=== PATIENT | female | born 1945 | race Caucasian/White ===

== ENCOUNTER → 2024-04-20 15:41 | Outpatient (REF) | payer MEDICARE, OTHER, SELFPAY ==
[2024-04-20 16:20] LABS: Hematocrit 36.7 % (37.0-47.0); Hemoglobin 11.7 g/dL (12.0-16.0); Mean Corp Hgb Conc. 31.9 g/dL (33.0-37.0); Mean Corpuscular Hgb 31.3 pg (27.0-31.0); Mean Corpuscular Volume 98.1 fL (81.0-99.0); Mean Platelet Volume 9.6 fL (7.4-10.4); Platelet Count 345 10^3/uL (130-400); Red Blood Cell Count 3.74 10^6/uL (4.20-5.40); Red Cell Dist. Width 14.2 % (11.5-14.5); White Blood Cell Count 8.5 10^3/uL (4.8-10.8)
[2024-04-20 16:52] LABS: Intact PTH 57.4 pg/ml (13.6-85.8)
[2024-04-20 18:58] LABS: ALT (SGPT) 15 U/L (0-35); AST (SGOT) 23 U/L (14-36); Alkaline Phosphatase 38 U/L (38-126); Blood Urea Nitrogen 32 mg/dl (7-17); Calcium 9.9 mg/dl (8.4-10.2); Carbon Dioxide 28 mmol/L (22-30); Chloride 106 mmol/L (98-107); Glucose < 30 mg/dl (70-99); Phosphorus 3.9 mg/dl (2.5-4.5); Potassium 4.3 mmol/L (3.5-5.1); Sodium 142 mmol/L (135-145); Total Bilirubin 0.4 mg/dl (0.2-1.3); Total Protein 7.1 g/dl (6.3-8.2); eGFR 23.67
[2024-04-21 09:09] LABS: Glycohemoglobin (HgbA1c) 7.1 % (4.0-5.6)
== END ==
LOC: REG 15:41
PROVIDERS: ATTENDING PHYSICIAN Internal Medicine Endocrinology, Diabetes & Metabolism
DX: E11.9 Type 2 diabetes mellitus without complications (principal); N18.4 Chronic kidney disease, stage 4 (severe)
CPT/HCPCS: 36415; 80053; 83036; 83970; 84100; 85027

== ENCOUNTER → 2024-05-06 13:12 | Outpatient (REF) | payer MEDICARE, OTHER, SELFPAY | LOC: HWWDC 13:12 | PROVIDERS: ATTENDING PHYSICIAN Nurse Practitioner Family | DX: Z12.31 Encounter for screening mammogram for malignant neoplasm of breast (principal) | CPT/HCPCS: 77063; 77067 ==

== ENCOUNTER 2024-10-06 22:49 | Inpatient (IN) | payer MEDICARE, OTHER, SELFPAY ==
[2024-10-06 19:49] VITALS: BP 162/85
[2024-10-06 20:04] VITALS: BMI 30.1
[2024-10-06 20:06] LABS: Glucose - Point of Care 573 mg/dl (70-99)
--- NOTE | 2024-10-06 20:09 | ED.GENMED ---
History of Present Illness
General
Chief Complaint: Blood Sugar Problem
Source: patient
Time Seen by Provider: 10/06/24 19:43
History of Present Illness
History of Present Illness:
79-year-old female presents to the emergency room after an neighbor called 911 after checking on her. Patient resides in a home with her who has significant dementia. The patient herself is essentially bedbound. Her is her primary
caregiver. Evidently the patient has not gotten out of her bed for 5 days. Unclear when she last had something to eat or drink. Patient denies chest pain, abdominal pain, nausea or vomiting. She has not had her medicine and an unknown period of
time. Patient is physically impaired due to a hemorrhagic stroke in 2011. She has a left hemiparesis.
Past History
Past History
ED Past Medical History: Cancer, CVA, HTN, NIDDM and Other (Neurogenic bladder, paroxysmal atrial fibrillation, breast cancer, chronic kidney disease)
ED Past Surgical History: Appendectomy and Other (Bartholin's cyst)
Social History
Tobacco: Non-smoker
Alcohol: None
Drug: None
Personal:
Living: with family
Employment: Not employed
Family History
Family History: Diabetes and Hypertension
Phy Exam
Physical Exam
Physical Exam:
General: Awake, Alert, Oriented X2. No acute distress.
Vitals: unremarkable
Head: Atraumatic
Eyes: Pupils equal, EOMI
Throat: Airway intact, no exudates, markedly dry
Neck: Trachea midline
Lungs: Clear and equal b/l
Heart: Regular rate, no murmurs
Abd: Soft, Nontender, No pulsatile mass
Neuro: Left-sided weakness due to previous hemorrhagic CVA
Skin: Warm, dry, intertrigo erythema and irritation
Extremities: pulses equal b/l, 1+ edema, changes of chronic venous stasis
Course
Orders/Labs/Results
Orders:
Orders
10/06/24 20:07
Cardiac Monitoring- Treatment ONCE
Straight cath- Treatment ONCE
0.9% Sodium Chloride 1000 ml [Nss] 1,000 ml IV BOLUS
10/06/24 20:08
Electrocardiogram (*1) Stat
Reason for Study: Abdominal Pain
10/06/24 20:13
CPK [Creatine Phosphokinase] Urgent
Complete Blood Count/With Diff Urgent
Comprehensive Metabolic Panel Urgent
Urinalysis Reflex To Culture Urgent
Date Specimen was Collected: 10/06/24
Time Specimen was Collected: 20:11
Urine Microscopic Reflex Cult Urgent
Urine Culture Urgent
LORRIE Source: U
Specimen Description:
Date Specimen was Collected: 10/06/24
Time Specimen was Collected: 20:11
10/06/24 21:19
Insulin Aspart [NOVOLOG vial] 8 units SC NOW STA
Piperacillin/Tazo 3.375 Gram [Zosyn] 3.375 gram in 50 ml IV NOW
10/06/24 22:05
Admit/Transfer Patient As Directed
Co-Sign Provider:
Level of Care: Inpatient admission
Assign to:: Medical/Surgical
Physician / Group: gillian
Diagnosis: uti, hyperglycemia
Reason for Hospitalization: uti, hyperglycemia
Expected length of stay greater than two midnights?: Yes
ELOS- Estimated Length of Stay in days: 2
I certify the patient meets the requirements for IP care: Yes
10/06/24 22:06
PRN Pain Medication Management As Directed
May give lesser potent ordered pain med per pt: Yes
preference::
Protocol:: Medication orders for pain may be administered in a
manner that supports deferring to patient preference
when the pt is:
- Requesting an ordered lesser potent pain medication.
Least to most potent pain medications are defined
as: acetaminophen < NSAID < tramadol < opioids
(morphine, oxycodone, hydromorphone).
- Requesting a lesser dose of the same medication IF
ORDERED.
- Requesting a less intrusive route of administration
if both routes are prescribed by the provider (PO <
IV).
10/06/24 22:07
Code Status As Directed
Resuscitation Status: Do not resuscitate
Reached after discussion with pt or family/Healthcare POA: Yes
DNR Bracelet Application ONCE
10/07/24 00:07
Dextrose 50%-Water [Dextrose 50% Syringe] 12.5 grams IV [id number] PRN
Glucagon [GlucaGen] 1 mg IM PRN PRN
Piperacillin/Tazo 2.25 Gram [Zosyn] 2.25 grams in 50 ml IV Q6H
10/07/24 00:07
VTE Contraindication Routine
VTE Mechanical Device Contraindication: Medical Contraindication
Pharmocologic Contraindication: Medical Contraindication
Activity As Directed
Activity Level: As Tolerated
Bedside Glucose Monitoring As Directed
Frequency: AC&HS
Additional Instructions:: Change to q6h if pt on TPN, tube feeding or not eating
Bladder Scan As Directed
Follow Bladder Retention/Intermittent Cath Algorithm?: Yes
PRN if no void in __ hours: 6
Frequency: Per Retention Algorithm
If Bladder Scan Result >: 400
then:: Straight cath
Straight Cath As Directed
Frequency: Per Retention Algorithm
Additional Instructions: straight cath as needed per acute urinary retention algorithm for 24 hrs
Additional Instructions: for bladder scan greater than 400 mL
Vital Signs As Directed
Frequency: Per unit guidelines
10/07/24 07:30
Insulin Aspart Corrective Low [Novolog Flexpen-Low Resistance] See Protocol SC AC
10/07/24 08:00
Amiodarone [Pacerone] 200 mg PO DAILY
Cyanocobalamin [Vitamin B-12] 1,000 mcg PO DAILY
Fenofibrate 145 [Tricor] 145 mg PO DAILY
Ferrous Sulfate [Feosol] 325 mg PO DAILY
ISOSORBIDE MONOnitrate ER [Imdur (Extended Release)] 30 mg PO DAILY
Insulin Aspart Pen [Novolog Flexpen] 20 units SC BID@0800,1700
Losartan [Cozaar] 50 mg PO DAILY
Multivitamin [Theragran] 1 tablet PO DAILY
Pantoprazole [Protonix] 40 mg PO DAILY
Potassium Chloride [KCl] 40 meq PO DAILY
10/07/24 08:01
Complete Blood Count/With Diff IN AM
Comprehensive Metabolic Panel IN AM
Glycohemoglobin (HgbA1c) IN AM
10/07/24 18:00
Atorvastatin [Lipitor] 10 mg PO QPM
Warfarin [Coumadin] 0.5 mg PO SuMoTuThFrSa@1800
insulin degludec [Tresiba FlexTouch U-100] 20 unit SC QPM
10/07/24 22:00
Metoprolol Xl [Toprol Xl] 50 mg PO HS
10/13/24 18:00
Warfarin [Coumadin] 1 mg PO WE@1800
Abnormal Lab Results
10/06/24 10/06/24 10/06/24
20:05 20:13 22:47
MCHC 31.6 L g/dL
(33.0-37.0)
Abs Immat Gran (auto) 0.1 H 10^3/uL
(0-0.05)
Absolute Lymphs (auto) 1.1 L 10^3/uL
(1.2-3.4)
Immature Gran % 1.6 H %
(0-0.5)
Neutrophils % 75.6 H %
(42.2-75.2)
Lymphocytes % 16.0 L %
(20.5-51.1)
Chloride 94 L mmol/L
(98-107)
BUN 38 H mg/dl
(7-17)
Creatinine 1.3 H mg/dL
(0.6-1.0)
Glucose 543 H* mg/dl
(70-99)
Total Protein 6.2 L g/dl
(6.3-8.2)
Albumin 3.4 L g/dl
(3.5-5.0)
Urine Ketones Trace A
(Negative)
Ur Occult Blood Reflex 4+ A
(Negative)
Urine Nitrite (Reflex) Positive A
(Negative)
Leukocyte Esterase Rfl 2+ A
(Negative)
Urine WBC (Reflex) >100 A /HPF
(0-5)
Urine Bacteria (Reflex) Moderate A
(Negative)
Urine Glucose 3+ A
(Negative)
Urine Albumin (Reflex) 1+ A
(Neg - Trace)
POC Glucose 573 H* mg/dl 421 H mg/dl
(70-99) (70-99)
10/06/24 20:13
10/06/24 20:13
Vital Signs
Initial and Last Documented VS:
Initial Vital Signs
Temp Pulse Resp BP Pulse Ox
98.4 F 108 27 162/85 94
10/06/24 19:49 10/06/24 19:49 10/06/24 19:49 10/06/24 19:49 10/06/24 19:49
Last Documented Vital Signs
Temp Pulse Resp BP Pulse Ox
98.3 F 69 18 129/67 94
10/10/24 07:25 10/10/24 07:25 10/10/24 07:25 10/10/24 07:25 10/10/24 07:25
MDM/Problems Addressed
Differential Diagnosis Includes:
HHS, uti, dehydration, electrolyte abn, renal failure
MDM/Problems Addressed:
Patient presents after being unable to go to bed for several days. Workup here shows significant abnormalities. Including very elevated glucose of 543. BUN is elevated at 3.8 with a creatinine of 1.3. Anion gap is not significantly elevated at
14. Urine appears infected with greater than 100 WBCs per high-power field. Also urine is very cloudy. Patient resuscitated with IV fluids. Insulin given subcutaneously. Patient will require hospitalization for IV fluid resuscitation,
monitoring of glucose, IV antibiotics.
Chronic conditions affecting care: Neurological disorder (CVA with hemiparesis)
*Radiology
Radiology exam reviewed: radiology read reviewed
*Pulse Oximetry
Patient hypoxic: no
*EKG
Interpreted by ED Provider?: Yes
Heart Rate: 85
Rate: normal
Rhythm: sinus
QRS Pattern: left bundle branch block
Ischemia: non-specific ST changes
*Truck Service Technician Interpretation
Rate: normal
Interpretation: normal
Rhythm: sinus
*Critical Care Note
Total Time (30-74mins, 75-104mins- exclusive of procedures): 40 min
comment:
Critical care statement: A total of 40 minutes of critical care time was provided for this patient. This includes management of unstable vital signs, evaluation of the patient at bedside, reviewing the patient's pertinent medical records, discussion
with consultants, review of old EKGs and review of pertinent medical records. This time with separate from time utilized to perform the aforementioned documented procedures
ED Attending Note
-
Portions of this chart may have been created with voice recognition software.� Occasional wrong word or��sound alike� substitutions may have occurred due to the inherent limitations of voice recognition software.
Discharge Plan
Departure
Patient Disposition: Admit
Date of Disposition: 10/06/24
Time of Disposition: 21:24
Admit to: Med/Surg
Presentation/result/management discussed w/ accepting MD/DO: Hospitalist
Condition: Fair
Discharge Problem:
Acute hyperglycemia, Acute UTI, Acute dehydration
Interventions
Interventions:
*Risk Screen - Suicide Last Done: 10/06/24 20:08
*General Assessment Last Done: 10/06/24 20:06
*Neglect/Abuse Screening Last Done: 10/06/24 20:07
ED- Fall Risk Assessment Last Done: 10/06/24 20:08
*ED COVID-19 Vaccine History Last Done: 10/06/24 20:06
*Nursing Disposition Last Done: 10/07/24 00:09
ED- Cardiac Assessment Last Done: 10/06/24 20:08
ED- Neurological Assessment Last Done: 10/06/24 20:08
ED- Pulmonary Assessment Last Done: 10/06/24 20:08
Discharge Date and Time
Discharge Date/Time: 10/07/24 00:14
[2024-10-06] MEDS: NSS 1000 IV (20:12)
[2024-10-06 20:24] LABS: % Basophils 0.4 % (0-2); % Immature Granulocytes 1.6 % (0-0.5); % Monocytes 5.4 % (1.7-9.3); % Neutrophils 75.6 % (42.2-75.2); Absolute Eosinophils 0.1 10^3/uL (0-0.7); Absolute Immature Granulocytes 0.1 10^3/uL (0-0.05); Absolute Lymphocytes 1.1 10^3/uL (1.2-3.4); Absolute Monocytes 0.4 10^3/uL (0.1-0.6); Absolute Neutrophils 5.1 10^3/uL (1.4-6.5); Hematocrit 42.1 % (37.0-47.0); Hemoglobin 13.3 g/dL (12.0-16.0); Mean Corp Hgb Conc. 31.6 g/dL (33.0-37.0); Mean Corpuscular Hgb 30.6 pg (27.0-31.0); Mean Platelet Volume 9.6 fL (7.4-10.4); Nucleated Red Blood Cells % 0 %; Platelet Count 326 10^3/uL (130-400); Red Blood Cell Count 4.34 10^6/uL (4.20-5.40); Red Cell Dist. Width 13.6 % (11.5-14.5); White Blood Cell Count 6.8 10^3/uL (4.8-10.8)
[2024-10-06 20:35] LABS: Urine Albumin 1+ (Neg - Trace); Urine Bilirubin Negative (Negative); Urine Character Very Cloudy (Clear); Urine Color Yellow; Urine Glucose 3+ (Negative); Urine Ketone Trace (Negative); Urine Leukocyte 2+ (Negative); Urine Nitrite Positive (Negative); Urine Occult Blood 4+ (Negative); Urine Specific Gravity 1.015 (<1.030); Urine Urobilinogen Negative (Neg - 1+)
[2024-10-06 20:43] LABS: ALT (SGPT) 16 U/L (0-35); AST (SGOT) 22 U/L (14-36); Albumin 3.4 g/dl (3.5-5.0); Alkaline Phosphatase 73 U/L (38-126); Blood Urea Nitrogen 38 mg/dl (7-17); Calcium 8.8 mg/dl (8.4-10.2); Carbon Dioxide 27 mmol/L (22-30); Chloride 94 mmol/L (98-107); Creatine Phosphokinase 37 U/L (30-135); Estimated Creatinine Clearance 42 ml/min; Glucose 543 mg/dl (70-99); Potassium 3.9 mmol/L (3.5-5.1); Sodium 135 mmol/L (135-145); Total Bilirubin 0.4 mg/dl (0.2-1.3); Total Protein 6.2 g/dl (6.3-8.2); eGFR 42.09
[2024-10-06 20:55] LABS: Urine Bacteria Moderate (Negative); Urine White Cell >100 /HPF (0-5)
[2024-10-06 21:00] VITALS: BP 162/81
[2024-10-06] MEDS: NOVOLOG vial 8 UNITS SC (21:43)
[2024-10-06] MEDS: ZOSYN 50 IV (21:45)
[2024-10-06 22:00] VITALS: BP 148/85
--- NOTE | 2024-10-06 22:12 | HPS.HSE ---
Family Physician
-
Family Physician: INTERVIEWE UNKNOWN - PT NOT
Chief Complaint
-
weakness
History of Present Illness
79-year-old female past medical history of CVA with left hemiparesis, paroxysmal atrial fibrillation, hypertension, diabetes, neurogenic bladder, breast cancer, CKD 3, complicated UTI with left obstructive stone, anemia, aspiration pneumonitis,
presenting for inability to get out of bed for 5 days. History is obtained from patient's neighbor. Her usually takes care of her but he has dementia and he is being admitted currently. She normally uses a [employer] lift to get around. She
is nonambulatory at baseline. Her has been giving her insulin but not checking her blood sugars. She denies any nausea or vomiting, urinary symptoms, abdominal pain, diarrhea, shortness of breath, cough.
Patient does not smoke or drink alcohol.
Medical History
Past Medical History
Past Medical History: Reports Other (CVA with left hemiparesis, paroxysmal atrial fibrillation, hypertension, diabetes, neurogenic bladder, breast cancer, CKD 3, complicated UTI with left obstructive stone, anemia, aspiration pneumonitis)
Past Surgical History: Reports Other (Appendectomy and Other (Bartholin's cyst))
Social History
Tobacco: Non-smoker
Alcohol: None
Drug: None
Family History
Family History: Not pertinent
Allergies / Home Medications
Allergies reflects when Allergies were last updated in [facility].
Home Medications with original date entered in [facility]
Allergy/Medication List:
Allergies
Allergy/AdvReac Type Severity Reaction Status Date / Time
cephalexin monohydrate Allergy Itching; Verified 03/23/23 17:49
[From [facility]] tolerates
Piperacillin/tazobactam
Home Medications
simvastatin 10 mg tablet 10 mg PO QPM 01/22/19
cyanocobalamin (vitamin B-12) 1,000 mcg tablet 1,000 mcg PO DAILY 12/01/19
warfarin 1 mg tablet (Jantoven) 1 mg PO WE 12/01/19
amiodarone 200 mg tablet (Pacerone) 200 mg PO DAILY 12/16/19
metoprolol succinate 50 mg tablet,extended release 24 hr 50 mg PO HS 12/16/19
pantoprazole 40 mg tablet,delayed release 40 mg PO DAILY 12/16/19
fenofibrate nanocrystallized 145 mg tablet 145 mg PO DAILY 04/24/20
ferrous sulfate 325 mg (65 mg iron) tablet (FeroSul) 325 mg PO DAILY 04/24/20
insulin aspart U-100 100 unit/mL (3 mL) subcutaneous pen (Novolog FlexPen U-100 Insulin aspart) 20 units SC BID@0800,1700 04/24/20
isosorbide mononitrate 30 mg tablet,extended release 24 hr 30 mg PO DAILY 04/24/20
losartan 50 mg tablet 50 mg PO DAILY 04/24/20
cranberry extract 200 mg capsule (Ellura) 200 mg PO NOON 10/06/24
furosemide 20 mg tablet 40 mg PO DAILY 10/06/24
insulin degludec 100 unit/mL (3 mL) subcutaneous pen (Tresiba FlexTouch U-100 insulin) 20 unit SC QPM 10/06/24
potassium chloride 10 mEq tablet,extended release 40 meq PO DAILY 10/06/24
therapeutic multivitamin 1 tab PO DAILY 10/06/24
warfarin 1 mg tablet 0.5 mg PO SUMOTUTHFRSA 10/06/24
Review of Systems
-
History Source: Patient
A 12 point ROS was completed and negative except as noted: Yes
Constitutional: Reports No Symptoms
EENT: Reports No Symptoms
Respiratory: Reports No Symptoms
Cardiac: Reports No Symptoms
Abdomen/GI: Reports No Symptoms
: Reports No Symptoms
Musculoskeletal: Reports No Symptoms
Skin: Reports No Symptoms
Neurological: Reports No Symptoms
Endocrine: Reports No Symptoms
Hematologic/Lymphatic: Reports No Symptoms
Psych: Reports No Symptoms
Physical Exam
Vital Signs
Vital Signs
Temp Pulse Resp BP Pulse Ox
98.4 F 84 19 162/85 92
10/06/24 19:49 10/06/24 20:30 10/06/24 20:30 10/06/24 19:49 10/06/24 20:30
Physical Exam
General: Well Developed, Well Nourished and No Apparent Distress
HEENT: NormoCephalic, Moist mucous membranes and Atraumatic
Respiratory: Clear
Cardiac: S1/S2 and Regular Rhythm; No Murmur or Rub
GI: Soft, Non Tender, Non Distended and Normal Bowel Sounds; No Organomegaly
Rectal: Deferred by Provider
Musculoskeletal: No Clubbing, No Cyanosis and No Edema
Skin: No Rash
Neuro: Nonfocal/grossly intact
Laboratory Results
-
10/06/24 20:13
10/06/24 20:13
Laboratory Results
PT Cancelled 10/06/24 20:12
INR Cancelled 10/06/24 20:12
Total Bilirubin 0.4 mg/dl (0.2-1.3) 10/06/24 20:13
AST 22 U/L (14-36) 10/06/24 20:13
ALT 16 U/L (0-35) 10/06/24 20:13
Alkaline Phosphatase 73 U/L (38-126) 10/06/24 20:13
Data Reviewed
-
Lab Data: Labs Reviewed by me
Old Records: Reviewed
Impression/Plan
-
IMPRESSION:
PLAN:
# Urinary tract infection
# History of prior urinary retention
-IV fluids given, hold further fluids
-Urine culture
-Zosyn
-Bladder scan protocol
# Hyperglycemia secondary to infection
# Type 2 diabetes
-Blood sugar 543
-Continue Tresiba 20 units at night
-Continue NovoLog 20 units twice daily
History of CVA with left hemiparesis
Paroxysmal atrial fibrillation
-Continue amiodarone
-Continue Coumadin
-Continue metoprolol
Essential hypertension
-Continue losartan
Breast cancer
CKD 3
-Renal function at baseline
Chronic anemia
-Hemoglobin at baseline
-Continue ferrous sulfate
Hyperlipidemia
-Continue fenofibrate
Lower extremity edema
-Hold Lasix
DNR/DNI
DVT prophylaxis�Coumadin
Regular diet
[2024-10-06 22:51] LABS: Glucose - Point of Care 421 mg/dl (70-99)
[2024-10-06 23:01] VITALS: BP 134/72
[2024-10-06 23:30] VITALS: BP 158/83
[2024-10-06 23:45] LABS: Glucose 435 mg/dl (70-99)
[2024-10-07] VITALS: BP 158/83; BMI 28.1
--- NOTE | 2024-10-07 00:15 | PTCARENOTE ---
Patient arrived to unit via stretcher accompanied by ED PCT, transferred from stretcher to bed without difficulty. Nursing assessment completed and as documented. Venous blood glucose on arrival resulted at 435 from ED draw, WOODWORK SALVAGE INSPECTOR notified and on
floor, 6units Novolog ordered and administered - see MAR. Coags ordered for AM. VSS, oriented to room/facility, instructed use of call and within reach, care ongoing.
[2024-10-07] MEDS: NOVOLOG FLEXPEN 6 UNITS SC (01:21)
[2024-10-07 02:17] LABS: Glucose - Point of Care 316 mg/dl (70-99)
[2024-10-07] MEDS: ZOSYN 50 IV ×3 (05:05→18:27)
--- NOTE | 2024-10-07 07:58 | W.PN.HOSP.TC ---
Addendum entered and electronically signed by Neftaly Huff MD 10/07/24 15:18:
I spoke to on-call neurosurgeon today, and discussed patient's history of intracranial hemorrhage; on-call neurosurgeon mentioned that there are no contraindications to starting Heparin Drip to bridge the Coumadin. Appreciate neurosurgery and
cardiology assistance.
Original Note:
Today's Communication/Plan
-
Subtherapeutic INR -- discussed with cardiology and okay to bridge with Heparin Drip without initial bolus
Continue antibiotics
Assessment / Plan
Assessment / Plan
Physical Exam
General: Not in acute distress
HEENT: Normocephalic
Respiratory: CTAB
Cardiac: S1/S2 and Regular Rhythm
GI: Soft, Non Tender, Non Distended and Normal Bowel Sounds
Musculoskeletal: No Cyanosis and No Edema
Skin: Warm. Dry.
Neuro: Nonfocal/grossly intact
Assessment/Plan
79-year-old female with past medical history of CVA with left hemiparesis, paroxysmal atrial fibrillation, hypertension, diabetes, neurogenic bladder, breast cancer, chronic kidney disease stage 3, complicated UTI with left obstructive stone,
anemia, aspiration pneumonitis, presented for inability to get out of bed for 5 days. History on admission was obtained from patient's neighbor. Patient's usually takes care of patient but was noted to have dementia and he is being admitted
currently. She normally uses a [employer] lift to get around. She is nonambulatory at baseline. Her had been giving her insulin but not checking her blood sugars. She denied any nausea or vomiting, urinary symptoms, abdominal pain, diarrhea,
shortness of breath, cough.
Patient does not smoke or drink alcohol.
#Presentation with inability to get out of bed for 5 days
#Acute Hypoxic Respiratory Failure -- on 3 L of oxygen here, but no home oxygen
#History of Aspiration Pneumonitis
#Urinary tract infection
#History of E. coli, Klebsiella pneumoniae, Klebsiella oxytoca and Nohemy Albicans in the Urine
#History of prior urinary retention
#History of MRSA
#History of Polymicrobial Septic Shock (with blood cultures positive for candidemia and E coli and Providencia species)
#History of complicated urinary tract infection with left obstructive stone and hydronephrosis
-In 2019, patient required cystoscopy with stone manipulation and JJ stent placement on December 08, 2019
-IV fluids given, hold further fluids
-Follow urine culture
-Zosyn
-Recheck MRSA swab
-Bladder scan protocol
-Check Echo, proBNP for any signs of PE especially with subtherapeutic INR
-Check lower extremity ultrasound for DVT
# Hyperglycemia secondary to infection
# Type 2 diabetes
-Blood sugar 543
-Continue Tresiba 20 units at night
-Continue NovoLog 20 units twice daily
History of CVA with left hemiparesis
Hypokalemia
-Replace potassium
-Check magnesium
-Monitor BMP
Paroxysmal atrial fibrillation on Coumadin
Subtherapeutic INR
-Continue amiodarone
-Continue Coumadin
-Given subtherapeutic INR, will bridge with Heparin Drip without initial bolus -- discussed this with on-call cardiology on 10/07/24 and okay to do in the setting of her history of remote hemorrhagic
CVA
-Continue metoprolol
Essential hypertension
-Continue losartan
CKD 3
-Renal function at baseline
Chronic anemia
-Hemoglobin at baseline
-Continue ferrous sulfate
Hyperlipidemia
-Continue fenofibrate
Lower extremity edema
-Hold Lasix
History of Breast cancer status post mastectomy with port placement followed by chemotherapy and radiation therapy - finished all of that back in 2011
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
Neurogenic bladder from her CVA.
-Continue Bladder Scans protocol
Psoriasis
History of sacral decubitus ulcer
History of DVT status post IVC filter
Sacral decubitus ulcer.
DNR/DNI
DVT prophylaxis�Coumadin
Regular diet
Anticipated Discharge: > 48 hours
Subjective/Interval History
-
Date of Service: October 07, 2024
Patient was seen and examined. She denied any new symptoms or complaints.
Objective Data
-
Labs:
Laboratory Results
10/06/24 10/06/24 10/06/24
20:12 20:13 23:17
WBC 6.8
Hgb 13.3
Hct 42.1
Plt Count 326
PT Cancelled
INR Cancelled
APTT
Sodium 135
Potassium 3.9
Chloride 94 L
Carbon Dioxide 27
BUN 38 H
Creatinine 1.3 H
Glucose 543 H* 435 H
Calcium 8.8
Total Bilirubin 0.4
AST 22
ALT 16
Alkaline Phosphatase 73
10/07/24
06:00
WBC Pending
Hgb Pending
Hct Pending
Plt Count Pending
PT Pending
INR Pending
APTT Pending
Sodium Pending
Potassium Pending
Chloride Pending
Carbon Dioxide Pending
BUN Pending
Creatinine Pending
Glucose Pending
Calcium Pending
Total Bilirubin Pending
AST Pending
ALT Pending
Alkaline Phosphatase Pending
Vital Signs:
Vital Signs
Temp Pulse Resp BP Pulse Ox
98.3 F 82 18 158/83 93
10/07/24 00:00 10/07/24 00:00 10/07/24 00:00 10/07/24 00:00 10/07/24 01:23
I&O
10/06/24 10/07/24 10/08/24
06:59 06:59 06:59
Intake Total 650 / 650
Balance 650 / 650
[2024-10-07 08:24] LABS: Glucose - Point of Care 375 mg/dl (70-99)
[2024-10-07 08:27] LABS: % Basophils 0.5 % (0-2); % Eosinophils 0.9 % (0-6); % Immature Granulocytes 1.3 % (0-0.5); % Lymphocytes 10.9 % (20.5-51.1); % Monocytes 7.9 % (1.7-9.3); % Neutrophils 78.5 % (42.2-75.2); Absolute Eosinophils 0.1 10^3/uL (0-0.7); Absolute Immature Granulocytes 0.1 10^3/uL (0-0.05); Absolute Monocytes 0.7 10^3/uL (0.1-0.6); Absolute Neutrophils 6.9 10^3/uL (1.4-6.5); Hematocrit 36.9 % (37.0-47.0); Hemoglobin 11.8 g/dL (12.0-16.0); Mean Corpuscular Hgb 30.9 pg (27.0-31.0); Mean Corpuscular Volume 96.6 fL (81.0-99.0); Mean Platelet Volume 10.1 fL (7.4-10.4); Nucleated Red Blood Cells % 0 %; Platelet Count 266 10^3/uL (130-400); Red Blood Cell Count 3.82 10^6/uL (4.20-5.40); Red Cell Dist. Width 13.8 % (11.5-14.5); White Blood Cell Count 8.7 10^3/uL (4.8-10.8)
[2024-10-07 08:34] LABS: INR 1.39; PT 17.6 Sec (11.4-14.6)
[2024-10-07 08:35] LABS: APTT 32.5 Sec (23.4-35.0)
[2024-10-07] MEDS: NOVOLOG FLEXPEN-LOW RESISTANCE 5 UNITS SC ×2 (08:42→18:39)
[2024-10-07] MEDS: COZAAR 50 MG PO (08:43)
[2024-10-07] MEDS: IMDUR (EXTENDED RELEASE) 30 MG PO (08:44)
[2024-10-07] MEDS: TRICOR 145 MG PO (08:44)
[2024-10-07] MEDS: VITAMIN B-12 1000 MCG PO (08:44)
[2024-10-07] MEDS: KCL 40 MEQ PO ×2 (08:44→18:17)
[2024-10-07] MEDS: THERAGRAN 1 TABLET PO (08:44)
[2024-10-07] MEDS: FEOSOL 325 MG PO (08:44)
[2024-10-07] MEDS: PROTONIX 40 MG PO (08:44)
[2024-10-07] MEDS: NOVOLOG FLEXPEN 20 UNITS SC (08:45)
[2024-10-07] MEDS: PACERONE 200 MG PO (08:45)
[2024-10-07 09:55] LABS: ALT (SGPT) 13 U/L (0-35); AST (SGOT) 17 U/L (14-36); Albumin 2.8 g/dl (3.5-5.0); Alkaline Phosphatase 61 U/L (38-126); Blood Urea Nitrogen 35 mg/dl (7-17); Calcium 8.6 mg/dl (8.4-10.2); Carbon Dioxide 25 mmol/L (22-30); Chloride 97 mmol/L (98-107); Estimated Creatinine Clearance 40 ml/min; Glucose 383 mg/dl (70-99); Potassium 3.4 mmol/L (3.5-5.1); Sodium 135 mmol/L (135-145); Total Bilirubin 0.5 mg/dl (0.2-1.3); Total Protein 5.4 g/dl (6.3-8.2); eGFR 42.09
[2024-10-07 12:40] LABS: Glucose - Point of Care 274 mg/dl (70-99)
[2024-10-07] MEDS: NOVOLOG FLEXPEN-LOW RESISTANCE 3 UNITS SC (12:54)
--- NOTE | 2024-10-07 13:35 | CM ---
automation and controls manager reviewed patient's chart and spoke with patient and her friend and her nephew, Rudolph at bedside. Patient having difficulty answering questions maybe due to an old stroke. Patient lives with her spouse in a 2 story home with 1st floor
set up. Per patient's family patient has been bedbound for a while possible 1-2 years, patient spouse had a [employer] Lift and w/c in home but it is unclear how recent patient's spouse has used these items.
Patient's spouse is currently a patient in the ED and has some memory issues.
Patient is currently on 3 liters of oxygen.
PCP: Not sure if patient sees PCP patient was unable to answer question.
Plan; automation and controls manager will await PT/OT but did discuss possible skilled placement and provided a list of options. Patient may have a POA Candice Gabriel.
[2024-10-07 14:07] LABS: Glycohemoglobin (HgbA1c) 9.8 % (4.0-5.6)
--- NOTE | 2024-10-07 14:40 | PN.DE.MGMTRT ---
Insulin Management
- -
10/07/2024 Diabetes Management Consult
Patient admitted 10/06 with blood sugar problem. Neighbor did a well check on patient and to find they were not able to care for each other. PMH CVA, CA, HTN, diabetes, kidney disease. Prior to admission chart indicates patient was
ordered novolog 20 units BID with Tresiba 20 units @ hs. A1C 9.8%, cr 1.3 eGFR 42.09.
Patient is awake and alert unable to answer questions regarding her diabetes care prior to admission. I did learn that her has dementia and was assisting her but she has not received insulin or been out of bed in 5 days. She did not
receive lantus last HS.
Glucose on admission 543. Will change 20 units novolog BID to 12 units novolog AC with low corrective. Patient ro receive 20 units lantus @ hs. Patient is unable to administer her insulin herself. There is a glucose monitor at home but patient
is unable to perform self testing.
Will follow.
Diabetes History
- -
Type of Diabetes: 2 requiring insulin
Pre-Admission Diabetes Regimen
10/06/24 10/07/24
20:13 08:01
Creatinine 1.3 H 1.3 H
Lab Results
Hemoglobin A1c 9.8 % (4.0-5.6) H 10/07/24 08:01
Insulin Pump Settings
IP Diabetes Regimen
10/06/24 10/06/24 10/06/24
20:05 20:13 22:47
Glucose 543 H*
POC Glucose 573 H* 421 H
10/06/24 10/07/24 10/07/24
23:17 02:16 08:01
Glucose 435 H 383 H
POC Glucose 316 H
10/07/24 10/07/24
08:23 12:38
Glucose
POC Glucose 375 H 274 H
Patient Education
[2024-10-07 16:30] VITALS: BP 110/60
--- NOTE | 2024-10-07 17:30 | PTCARENOTE ---
17OO Pt retuned back from Cat Scan of head and Peripheral vascular ultrasound. DR. Huff aware of results, ordered to start IV heparin drip and to bridge with coumadin. Pt is a difficult IV stick. Explain to DR. Huff PTT level due at 12
midnight post start of IV heparin drip, MD ordered
all current lab levels due can be drawn with PTT level at 12 midnight, continue to monitor pt closely.
[2024-10-07] MEDS: HEPARIN 25000 UNITS/250 ML IV (17:47)
[2024-10-07] MEDS: LIPITOR 10 MG PO (18:18)
[2024-10-07] MEDS: COUMADIN 0.5 MG PO (18:27)
[2024-10-07 18:28] LABS: Glucose - Point of Care 376 mg/dl (70-99)
[2024-10-07] MEDS: NOVOLOG FLEXPEN 12 UNITS SC (18:40)
[2024-10-07] MEDS: LANTUS 0.2 UNITS SC (18:40)
[2024-10-07 21:15] LABS: Glucose - Point of Care 322 mg/dl (70-99)
[2024-10-07 21:39] VITALS: BP 110/58
[2024-10-07] MEDS: TOPROL XL 50 MG PO (21:43)
[2024-10-07 22:10] VITALS: BP 110/58
[2024-10-08] MEDS: ZOSYN 50 IV ×3 (01:09→12:46)
[2024-10-08 01:14] LABS: APTT 24.5 Sec (23.4-35.0)
[2024-10-08 01:16] LABS: Hematocrit 36.6 % (37.0-47.0); Hemoglobin 11.6 g/dL (12.0-16.0); Mean Corp Hgb Conc. 31.7 g/dL (33.0-37.0); Mean Corpuscular Hgb 30.6 pg (27.0-31.0); Mean Corpuscular Volume 96.6 fL (81.0-99.0); Mean Platelet Volume 9.8 fL (7.4-10.4); Platelet Count 300 10^3/uL (130-400); Red Blood Cell Count 3.79 10^6/uL (4.20-5.40); Red Cell Dist. Width 14.1 % (11.5-14.5); White Blood Cell Count 9.6 10^3/uL (4.8-10.8)
[2024-10-08 01:30] LABS: Blood Urea Nitrogen 42 mg/dl (7-17); Calcium 8.8 mg/dl (8.4-10.2); Carbon Dioxide 27 mmol/L (22-30); Chloride 97 mmol/L (98-107); Estimated Creatinine Clearance 25 ml/min; Glucose 257 mg/dl (70-99); Magnesium 1.8 mg/dl (1.6-2.3); Potassium 4.2 mmol/L (3.5-5.1); Sodium 134 mmol/L (135-145); eGFR 23.67
[2024-10-08 01:33] LABS: NT-proBNP 439 pg/ml
[2024-10-08 07:06] VITALS: BP 105/83
--- NOTE | 2024-10-08 07:42 | PN.DE.MGMTRT ---
Insulin Management
- -
10/08/2024 Diabetes Management Consult Follow up
Patient admitted 10/06 with blood sugar problem. Neighbor did a well check on patient and to find they were not able to care for each other. PMH CVA, CA, HTN, diabetes, kidney disease. Prior to admission chart indicates patient was
ordered novolog 20 units BID with Tresiba 20 units @ hs. A1C 9.8%, cr 1.3 eGFR 42.09.
Patient is awake and alert unable to answer questions regarding her diabetes care prior to admission. I did learn that her has dementia and was assisting her but she has not received insulin or been out of bed in 5 days. She did not
receive lantus last HS.
Glucose on admission 543. Will change 20 units novolog BID to 12 units novolog AC with low corrective. Patient ro receive 20 units lantus @ hs.
10/08 Glucose remains elevated 257 fasting today and 274 to 376 pre meal yesterday. Will increase HS lantus to 24 units and AC novolog to 15 units with low corrective.
Patient is unable to administer her insulin herself. There is a glucose monitor at home but patient is unable to perform self testing.
Will follow.
Diabetes History
- -
Type of Diabetes: 2 requiring insulin
Pre-Admission Diabetes Regimen
10/07/24 10/07/24 10/08/24
08:01 20:00 01:02
Creatinine 1.3 H Cancelled 2.1 H
Lab Results
Hemoglobin A1c 9.8 % (4.0-5.6) H 10/07/24 08:01
Insulin Pump Settings
IP Diabetes Regimen
10/07/24 10/07/24 10/07/24
08:01 08:23 12:38
Glucose 383 H
POC Glucose 375 H 274 H
10/07/24 10/07/24 10/07/24
18:26 20:00 21:14
Glucose Cancelled
POC Glucose 376 H 322 H
10/08/24
01:02
Glucose 257 H
POC Glucose
Meal type: Breakfast
Amount consumed: 30%
Patient Education
[2024-10-08 07:49] LABS: Glucose - Point of Care 296 mg/dl (70-99)
[2024-10-08 08:13] LABS: INR 1.72; PT 20.3 Sec (11.4-14.6)
[2024-10-08 08:53] LABS: APTT 160.6 Sec (23.4-35.0)
[2024-10-08] MEDS: NOVOLOG FLEXPEN-LOW RESISTANCE 3 UNITS SC ×2 (10:05→18:37)
[2024-10-08] MEDS: NOVOLOG FLEXPEN 15 UNITS SC ×3 (10:06→18:37)
[2024-10-08] MEDS: NOVOLOG FLEXPEN SC (10:32)
[2024-10-08] MEDS: PROTONIX 40 MG PO (10:33)
[2024-10-08] MEDS: TRICOR 145 MG PO (10:34)
[2024-10-08] MEDS: THERAGRAN 1 TABLET PO (10:34)
[2024-10-08] MEDS: VITAMIN B-12 1000 MCG PO (10:34)
[2024-10-08] MEDS: KCL 40 MEQ PO (10:34)
[2024-10-08] MEDS: FEOSOL 325 MG PO (10:38)
[2024-10-08] MEDS: PACERONE 200 MG PO (10:38)
[2024-10-08] MEDS: IMDUR (EXTENDED RELEASE) 30 MG PO (10:39)
--- NOTE | 2024-10-08 11:08 | PN.CDI ---
CDI
- -
CDI:
Physician Documentation Request
Admit Date: 10/06/24 22:49
Dear Doctor Refugio,
Please review the following and provide your response in the progress notes.
Clinical Indicators:
PN, 10/07
#Essential hypertension
#CKD 3
#...-Renal function at baseline
Laboratory Tests
10/06/24 10/07/24 10/08/24
20:13 08:01 01:02
Creatinine 1.3 H 1.3 H 2.1 H
eGFR 42.09 42.09 23.67
Based on the above and your clinical assessment, please clarify which of the following accurately represents the patient's renal status:
Acute renal failure on chronic kidney disease (CKD) - please provide stage - see criteria)
CKD 3
Other (please specify)
Criteria for ELIAS*
1 Increase in serum creatinine by > or = to 0.3 mg/dL (> or = to 26.5 micromol/L) within 48 hours, OR
2 Increase in serum creatinine to > or = to 1.5 times baseline, which is known or presumed to have occurred within 7 days, OR
3 Urine volume < 0.5 nL/kg/hour for six hours
Stages of Chronic Kidney Disease*
Level Description GFR
G1 Normal or High >90
G2 Mildly decreased 60-89
G3a Mildly to moderately decreased 45-59
G3b Moderately to severely decreased 30-44
G4 Severely decreased 15-29
G5 Kidney failure <15
Use of terms such as suspected, likely, concern for, or probable (associated with a specific diagnosis that is being evaluated, monitored, or treated as if it exists) are acceptable and can be coded in the inpatient setting, when documented at the
time of discharge.
Thank you,
Virginia Harrison RN BSN CCDS
CDI Specialist
please contact via tiger text
Please use your independent medical judgment in providing your response.
*Source: Kidney Disease: Improving Global Outcomes (KDIGO) 2012
[2024-10-08 11:50] LABS: Glucose - Point of Care 368 mg/dl (70-99)
--- NOTE | 2024-10-08 12:48 | CM ---
Addendum entered by Addis Pompa 10/11/24 15:34:
Patient has been dned at [facility], referrals sent to [facility] and [facility].
Original Note:
manager embalmer funeral director reviewed patient's chart and spoke with patient , spouse and nephew Rudolph [phone] and they are agreeable to [facility], [facility] referrals sent through [facility].
Plan; Skilled placement patient and spouse would like placement at [facility].
[2024-10-08 13:19] VITALS: BP 110/60
[2024-10-08] MEDS: NOVOLOG FLEXPEN-LOW RESISTANCE 5 UNITS SC (14:03)
[2024-10-08] MEDS: COZAAR 50 MG PO (14:03)
--- NOTE | 2024-10-08 15:23 | W.PN.HOSP.TC ---
Addendum entered and electronically signed by Neftaly Huff MD 10/08/24 16:13:
Zosyn stopped, switched to Merrem (patient allergic to cephalosporin class of antibiotics).
Consulted nephrology and infectious disease.
Gentle IV fluids.
Monitor closely for urinary retention.
Original Note:
Today's Communication/Plan
-
Continue antibiotics but switch to Rocephin
Continue bladder scans
Assessment / Plan
Assessment / Plan
Physical Exam
General: Not in acute distress
HEENT: Normocephalic
Respiratory: CTAB
Cardiac: S1/S2 and Regular Rhythm
GI: Soft, Non Tender, Non Distended and Normal Bowel Sounds
Musculoskeletal: No Cyanosis and No Edema
Skin: Warm. Dry.
Neuro: Nonfocal/grossly intact

Echocardiogram (as per command post craftsman's report):
CONCLUSIONS
LV ejection fraction is 60-65%.
No regional wall motion abnormalities are seen.
Normal right ventricular size and function.
Mild to moderate tricuspid regurgitation. Estimated pulmonary artery pressure
of 40-45 mmHg.
Compared to previous echo on 12/03/2019, the degree of mitral regurgitation has
improved (previously moderate). PASP has slightly increased (previously 30-35
mmHg).

Assessment/Plan
79-year-old female with past medical history of CVA with left hemiparesis, paroxysmal atrial fibrillation, hypertension, diabetes, neurogenic bladder, breast cancer, chronic kidney disease stage 3, complicated UTI with left obstructive stone,
anemia, aspiration pneumonitis, presented for inability to get out of bed for 5 days. History on admission was obtained from patient's neighbor. Patient's usually takes care of patient but was noted to have dementia and he is being admitted
currently. She normally uses a [employer] lift to get around. She is nonambulatory at baseline. Her had been giving her insulin but not checking her blood sugars. She denied any nausea or vomiting, urinary symptoms, abdominal pain, diarrhea,
shortness of breath, cough.
Patient does not smoke or drink alcohol.
#Presentation with inability to get out of bed for 5 days
#Acute Hypoxic Respiratory Failure -- on 3 L of oxygen here, but no home oxygen
#History of Aspiration Pneumonitis
#Urinary tract infection
#History of E. coli, Klebsiella pneumoniae, Klebsiella oxytoca and Nohemy Albicans in the Urine
#History of prior urinary retention
#History of MRSA
#History of Polymicrobial Septic Shock (with blood cultures positive for candidemia and E coli and Providencia species)
#History of complicated urinary tract infection with left obstructive stone and hydronephrosis
-In 2019, patient required cystoscopy with stone manipulation and JJ stent placement on December 08, 2019
-IV fluids given, hold further fluids
-Follow urine culture -- so far growing E. coli
-Stop Zosyn given jump in creatinine
-Start ceftriaxone
-MRSA swab negative
-Bladder scan protocol
-Echo okay, proBNP 439 --> not suspecting PE
-Lower extremity ultrasound showed no DVT
# Hyperglycemia secondary to infection
# Type 2 diabetes
-Blood sugar was 543
-Appreciate Diabetes DAY SPA MANAGER insulin adjustment assistance
History of CVA with left hemiparesis
Hypokalemia - RESOLVED
-Replace potassium
-Magnesium okay
-Monitor BMP
Paroxysmal atrial fibrillation on Coumadin
Subtherapeutic INR
-Continue amiodarone
-Continue Coumadin
-Given subtherapeutic INR, continue to bridge with Heparin Drip -- discussed this with on-call cardiology and neurosurgery on 10/07/24 and okay to do Heparin Drip in the setting of her history of remote hemorrhagic
CVA
-Continue metoprolol
Essential hypertension
-Continue losartan
ELIAS on CKD 3
-Cr jumped from 1.3 to 2.1, previously IV fluids were given
-Possibly from Zosyn
-Gentle IV fluids
-Continue bladder scans
-Check renal ultrasound
-Nephrology consult
Chronic anemia
-Hemoglobin at baseline
-Continue ferrous sulfate
Hyperlipidemia
-Continue fenofibrate
Lower extremity edema
-Hold Lasix
History of Breast cancer status post mastectomy with port placement followed by chemotherapy and radiation therapy - finished all of that back in 2011
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
Neurogenic bladder from her CVA.
-Continue Bladder Scans protocol
Psoriasis
History of sacral decubitus ulcer
History of DVT status post IVC filter
Sacral decubitus ulcer.
DNR/DNI
Diet/Speech: 'Swallow Evaluation for 432-01 Gaines Kinza: Recommending IDDSI Level 4 Puree diet, thin liquids. Medications crushed in puree. Aspiration precautions includin:1 assistance/100% supervision with meals, check for pocketing,
monitor for signs of aspiration.....'
DVT prophylaxis�Coumadin and Heparin Drip
IDDSI Level 4+Thin Liquids diet
Anticipated Discharge: > 48 hours
Subjective/Interval History
-
Date of Service: October 08, 2024
Patient was seen and examined. She denied any chest pain or shortness of breath.
Objective Data
-
Labs:
Laboratory Results
10/08/24 10/08/24 10/08/24
07:39 07:39 16:00
PT 20.3 H
INR 1.72
APTT 160.6 H* Cancelled Pending
Vital Signs:
Vital Signs
Temp Pulse Resp BP Pulse Ox
97.6 F 83 18 110/60 95
10/08/24 07:06 10/08/24 07:06 10/08/24 07:06 10/08/24 13:19 10/08/24 07:06
I&O
10/07/24 10/08/24 10/09/24
06:59 06:59 06:59
Intake Total 650 / 650 1110 / 1110
Balance 650 / 650 1110 / 1110
--- NOTE | 2024-10-08 15:23 | PTOTSP ---
SPEECH THERAPY SWALLOW EVALUATION:
Patient exhibits clinical signs of oropharyngeal dysphagia, likely chronic related to history of CVA and acutely exacerbated by UTI. Patient remains at risk for aspiration and related complications due to confusion, reduced insight, poor oral
hygiene and limited mobility. Recommend diet downgrade to IDDSI Level 4 Puree diet, thin liquids. Medications crushed in puree. Aspiration precautions: 100% supervision and 1:1 assistance with meals; Upright positioning; Small single sips/bites;
Slow rate; Alternate textures; Check for pocketing; Only feed when awake/alert; Monitor labs/CXR; Monitor for signs of aspiration; D/c diet if any decline in mental or respiratory status. Oral care 3x/day to reduce risk for nosocomial infection. ST
to follow, assess diet tolerance and modify as appropriate, determine indication for instrumental assessment of swallowing if warranted, and provide continued eduation regarding aspiration risks and precautions.
RECOMMEND:
1) diet downgrade to IDDSI Level 4 Puree diet, thin liquids
2) Medications crushed in puree
3) Aspiration precautions: 100% supervision and 1:1 assistance with meals; Upright positioning; Small single sips/bites; Slow rate; Alternate textures; Check for pocketing; Only feed when awake/alert; Monitor labs/CXR; Monitor for signs of
aspiration; D/c diet if any decline in mental or respiratory status
4) Oral care 3x/day
5) ST to follow
[2024-10-08 15:49] VITALS: BP 109/59
--- NOTE | 2024-10-08 16:17 | W.CON.NEPH ---
Consultation
-
Date/Time Consultation Requested: 10/08/2024 4:15 PM
Date/Time Consultation Performed: 10/08/2024 4:15 PM
Requesting Provider: Dr. Croft
Performing Provider: Dr. Cho
Reason for Consultation: Acute kidney
Medical History
-
Chief Complaint: Acute kidney injury
History of Present Illness:
The patient is a 79-year-old female with a past medical history of atrial fibrillation chronically maintained on amiodarone and rate controlled with metoprolol. She is chronically anticoagulated with Coumadin. She has a history of diabetes and is
maintained on insulin therapy. She is maintained on losartan and metoprolol for her hypertension. The patient has a history of chronic kidney disease with creatinine levels noted between 1.3-2 per review of electronic medical record over the past
2 years. She has a history of CVA with subsequent left hemiparesis. She also has an associated neurogenic bladder and previous breast cancer. She has had prior issues with complicated UTIs secondary to left obstructive nephrolithiasis. She
presented to the hospital 2 days prior with inability to get out of bed for 5 days. She is normally nonambulatory at baseline. She had been given antibiotics which included IV Zosyn and has now had acute kidney injury with her creatinine up from
1.3-2.1 and nephrology was consulted.
Past Medical History
CVA with left hemiparesis
Hypertension
Paroxysmal atrial fibrillation
CKD stage IIIa
Breast cancer
Insulin requiring diabetes
Neurogenic bladder
History of complicated UTIs with left obstructive nephrolith
Anemia
Appendectomy
Social History
Tobacco: Non-Smoker
Alcohol: None
Family History
no ckd
Family History: Not Pertinent
Allergies / Home Medications
Allergy/AdvReac Type Severity Reaction Status Date / Time
cephalexin monohydrate Allergy Itching; Verified 03/23/23 17:49
[From Keflex] tolerates
Piperacillin/tazobactam
�Medication �Instructions �Recorded �Confirmed �Type
simvastatin 10 mg tablet 10 mg PO QPM 01/22/19 10/06/24 History
cyanocobalamin (vitamin B-12) 1,000 mcg PO DAILY 12/01/19 10/06/24 History
1,000 mcg tablet
warfarin 1 mg tablet (Jantoven) 1 mg PO WE 12/01/19 10/06/24 History
amiodarone 200 mg tablet (Pacerone) 200 mg PO DAILY 12/16/19 10/06/24 Rx
metoprolol succinate 50 mg 50 mg PO HS 12/16/19 10/06/24 Rx
tablet,extended release 24 hr
pantoprazole 40 mg tablet,delayed 40 mg PO DAILY 12/16/19 10/06/24 Rx
release
fenofibrate nanocrystallized 145 145 mg PO DAILY 04/24/20 10/06/24 History
mg tablet
ferrous sulfate 325 mg (65 mg 325 mg PO DAILY 04/24/20 10/06/24 History
iron) tablet (FeroSul)
insulin aspart U-100 100 unit/mL 20 units SC BID@0800,1700 04/24/20 10/06/24 History
(3 mL) subcutaneous pen (Novolog
FlexPen U-100 Insulin aspart)
isosorbide mononitrate 30 mg 30 mg PO DAILY 04/24/20 10/06/24 History
tablet,extended release 24 hr
losartan 50 mg tablet 50 mg PO DAILY 04/24/20 10/06/24 History
cranberry extract 200 mg capsule 200 mg PO NOON 10/06/24 10/06/24 History
(Ellura)
furosemide 20 mg tablet 40 mg PO DAILY 10/06/24 10/06/24 History
insulin degludec 100 unit/mL (3 20 unit SC QPM 10/06/24 10/06/24 History
mL) subcutaneous pen (Tresiba
FlexTouch U-100 insulin)
potassium chloride 10 mEq 40 meq PO DAILY 10/06/24 10/06/24 History
tablet,extended release
therapeutic multivitamin 1 tab PO DAILY 10/06/24 10/06/24 History
warfarin 1 mg tablet 0.5 mg PO SUMOTUTHFRSA 10/06/24 10/06/24 History
Review of Systems
-
History Source: Patient
All other systems: Negative unless noted
Musculoskeletal: Edema and Other (Chronically bedbound)
Skin: Other (Venous stasis changes along lower extremity)
Neurological: Other (Left-sided hemiparesis)
Physical Exam
Vital Signs
Vital Signs
Temp Pulse Resp BP Pulse Ox
97.5 F 82 20 109/59 90
10/08/24 15:49 10/08/24 15:49 10/08/24 15:49 10/08/24 15:49 10/08/24 15:49
Lab Results
WBC 9.6 10^3/uL (4.8-10.8) 10/08/24 01:02
10/08/24 01:02
RBC 3.79 10^6/uL (4.20-5.40) L 10/08/24 01:02
Hgb 11.6 g/dL (12.0-16.0) L 10/08/24 01:02
Hct 36.6 % (37.0-47.0) L 10/08/24 01:02
Plt Count 300 10^3/uL (130-400) 10/08/24 01:02
eGFR 23.67 10/08/24 01:02
Wwy-D-Mfzbrytviaq Pept 439 pg/ml 10/08/24 01:02
Albumin 2.8 g/dl (3.5-5.0) L 10/07/24 08:01
Physical Exam
General: AOx3, Nontoxic , NAD
HEENT: PERRL, EOMI, Anicteric, Conjunctivae Clear, Ear/Nose Intact, Hearing Normal, Oropharynx Clear/Moist, Dentition Intact, Facial Symmetry, Neck Supple, Neck: Trachea Midline, No JVD and No Thyromegaly, no Bruits
Respiratory: Clear to auscultation bilaterally with normal lung exersion
Cardiac: S1/S2 and Regular Rate/Rhythm
Breast: Deferred by me
Abdomen: Soft, Nontender, Nondistended, Normal Bowel Sounds and No Hepatosplenomegaly
Rectal: Deferred by Provider
Genito-urinary: No Costovertebral Tenderness
Extremities: No Clubbing, No Cyanosis but some pretibial pitting Edema
Skin: No Rash or open lesions, chronic venous stasis changes along lower extremities
Neuro: Nonfocal/Grossly Intact, CN II-XII (Intact) and left-sided hemiparesis.
Hematologic/Lymphatic: No Cervical Lymphadenopathy, No Submandibular Lymphadenopathy and No Supraclavicular Lymphadenopathy
Psych: Mood/afflect pleasant, Insight/judgement good and Appropriate
Vascular: plus 1 pedal and radial pulses
Data Reviewed
-
CT Scan: Report Reviewed by me (CT scan of head notes no acute intracranial abnormalities stable chronic findings noted by report)
Medical Tests (Nuc Med, Echo etc): Other (EKG notes left bundle branch block with normal sinus rhythm at 85 bpm)
Labs: Labs Reviewed by me ([facility] CBC urinalysis)
Old Records: Reviewed (Reviewed previous creatinine levels in electronic medical record from 04/20/2024 creatinine 2.1)
Assessment/Plan
-
Impression:
Ambulatory dysfunction
E. coli UTI
Acute kidney injury
CKD stage IIIa ~ 1.5)
Paroxysmal atrial fibrillation
History of CVA with left-sided hemiparesis
Hypertension
Insulin requiring diabetes
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
History of prior urinary tract infection due to left obstructive nephrolith with subsequent hydronephrosis
Plan:
ELIAS:
-Check urine eosinophils to assess for possible drug-induced interstitial nephritis
-Urinalysis notes 4+ blood , WBCs greater than 100, moderate bacteria 2+ leukocyte esterase positive nitrite, consistent with E. coli UTI
-Holding Lasix and losartan, hemodynamically stable
-Check postvoid bladder scan with low threshold for Robledo catheter placement if needed
-Obtain kidney and bladder ultrasound to assess for possible obstruction and/or nephrolith
-Okay for NSS at low rate for now
[2024-10-08 16:27] LABS: Glucose - Point of Care 271 mg/dl (70-99)
[2024-10-08 17:41] LABS: APTT > 200 Sec (23.4-35.0)
[2024-10-08] MEDS: NSS 500 IV (18:10)
[2024-10-08] MEDS: COUMADIN 0.5 MG PO (18:38)
[2024-10-08] MEDS: LIPITOR 10 MG PO (18:40)
[2024-10-08] MEDS: MERREM 500 MG IV (18:40)
[2024-10-08] MEDS: STERILE WATER FOR INJECTION 10 ML IV (18:40)
[2024-10-08] MEDS: HEPARIN 25000 UNITS/250 ML IV (20:07)
[2024-10-08 21:21] LABS: Glucose - Point of Care 210 mg/dl (70-99)
[2024-10-08 22:43] VITALS: BP 135/59
[2024-10-08] MEDS: TOPROL XL PO (22:44)
[2024-10-08] MEDS: LANTUS 0.24 UNITS SC (22:46)
[2024-10-08] MEDS: TOPROL XL 50 MG PO (22:50)
[2024-10-09 00:44] LABS: Blood Urea Nitrogen 46 mg/dl (7-17); Calcium 8.5 mg/dl (8.4-10.2); Carbon Dioxide 25 mmol/L (22-30); Chloride 99 mmol/L (98-107); Estimated Creatinine Clearance 25 ml/min; Glucose 169 mg/dl (70-99); Potassium 4.3 mmol/L (3.5-5.1); Sodium 134 mmol/L (135-145); eGFR 23.67
[2024-10-09] MEDS: NSS 1000 IV ×2 (01:50→13:20)
[2024-10-09 02:45] LABS: APTT 79.2 Sec (23.4-35.0)
[2024-10-09] MEDS: STERILE WATER FOR INJECTION 10 ML IV (05:40)
[2024-10-09] MEDS: MERREM 500 MG IV (05:40)
[2024-10-09 07:38] VITALS: BP 92/56
--- NOTE | 2024-10-09 07:49 | W.PN.HOSP.TC ---
Today's Communication/Plan
-
Continue Heparin Bridge, INR improving
Continue antibiotics
Appreciate nephrology and ID
Assessment / Plan
Assessment / Plan
Physical Exam
General: Not in acute distress
HEENT: Normocephalic
Respiratory: CTAB
Cardiac: S1/S2 and Regular Rhythm
GI: Soft, Non Tender, Non Distended and Normal Bowel Sounds
Musculoskeletal: No Cyanosis and No Edema
Skin: Warm. Dry.
Neuro: Nonfocal/grossly intact

Echocardiogram (as per ruffler's report):
CONCLUSIONS
LV ejection fraction is 60-65%.
No regional wall motion abnormalities are seen.
Normal right ventricular size and function.
Mild to moderate tricuspid regurgitation. Estimated pulmonary artery pressure
of 40-45 mmHg.
Compared to previous echo on 12/03/2019, the degree of mitral regurgitation has
improved (previously moderate). PASP has slightly increased (previously 30-35
mmHg).

Assessment/Plan
79-year-old female with past medical history of CVA with left hemiparesis, paroxysmal atrial fibrillation, hypertension, diabetes, neurogenic bladder, breast cancer, chronic kidney disease stage 3, complicated UTI with left obstructive stone,
anemia, aspiration pneumonitis, presented for inability to get out of bed for 5 days. History on admission was obtained from patient's neighbor. Patient's usually takes care of patient but was noted to have dementia and he is being admitted
currently. She normally uses a [employer] lift to get around. She is nonambulatory at baseline. Her had been giving her insulin but not checking her blood sugars. She denied any nausea or vomiting, urinary symptoms, abdominal pain, diarrhea,
shortness of breath, cough.
Patient does not smoke or drink alcohol.
#Presentation with inability to get out of bed for 5 days
#Acute Hypoxic Respiratory Failure -- on 3 L of oxygen here, but no home oxygen
#History of Aspiration Pneumonitis
#Urinary tract infection secondary to pansensitive E. Coli
#History of E. coli, Klebsiella pneumoniae, Klebsiella oxytoca and Nohemy Albicans in the Urine
#History of prior urinary retention
#History of MRSA
#History of Polymicrobial Septic Shock (with blood cultures positive for candidemia and E coli and Providencia species)
#History of complicated urinary tract infection with left obstructive stone and hydronephrosis
-In 2019, patient required cystoscopy with stone manipulation and JJ stent placement on December 08, 2019
-Continue IV fluids for 1 more day
-Follow urine culture -- so far growing E. coli
-Stop Zosyn given jump in creatinine
-Transition to oral amoxicillin 500 mg p.o. twice daily x 5 days -- appreciate ID
-MRSA swab negative
-Bladder scan protocol
-Echo okay, proBNP 439 --> not suspecting PE
-Lower extremity ultrasound showed no DVT
# Hyperglycemia secondary to infection
# Type 2 diabetes
-Blood sugar was 543
-Appreciate Diabetes LOTTERY MANAGER insulin adjustment assistance
History of CVA with left hemiparesis
Hypokalemia - RESOLVED
-Replace potassium
-Magnesium okay
-Monitor BMP
Paroxysmal atrial fibrillation on Coumadin
Subtherapeutic INR
-Continue amiodarone
-Continue Coumadin
-Given subtherapeutic INR, continue to bridge with Heparin Drip -- discussed this with on-call cardiology and neurosurgery on 10/07/24 and okay to do Heparin Drip in the setting of her history of remote hemorrhagic
CVA
-Continue metoprolol
Essential hypertension
-Continue losartan
ELIAS on CKD 3
-Cr jumped from 1.3 to 2.1, previously IV fluids were given
-Zosyn stopped on 10/08/24
-Hold Losartan, PPI
-Continue IV fluids for 1 more day
-Continue bladder scans
-Renal ultrasound with urinary incontinence but otherwise unremarkable
-Nephrology consult evaluation and recommendations appreciated
Chronic anemia
-Hemoglobin at baseline
-Continue ferrous sulfate
Hyperlipidemia
-Continue fenofibrate
Lower extremity edema
-Hold Lasix
History of Breast cancer status post mastectomy with port placement followed by chemotherapy and radiation therapy - finished all of that back in 2011
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
Neurogenic bladder from her CVA.
-Continue Bladder Scans protocol
Psoriasis
History of sacral decubitus ulcer
History of DVT status post IVC filter
Sacral decubitus ulcer.
DNR/DNI
Diet/Speech: 'Swallow Evaluation for 432-01 Kinza Gaines: Recommending IDDSI Level 4 Puree diet, thin liquids. Medications crushed in puree. Aspiration precautions includin:1 assistance/100% supervision with meals, check for pocketing,
monitor for signs of aspiration.....'
DVT prophylaxis�Coumadin and Heparin Drip
IDDSI Level 4+Thin Liquids diet
Anticipated Discharge: 24 - 48 hours
Subjective/Interval History
-
Date of Service: October 09, 2024
Patient was seen and examined. She denied any new symptoms or complaints.
Objective Data
-
Labs:
Laboratory Results
10/08/24 10/09/24 10/09/24
23:58 02:23 06:00
WBC Pending
Hgb Pending
Hct Pending
Plt Count Pending
PT Pending
INR Pending
APTT 79.2 H
Sodium 134 L
Potassium 4.3
Chloride 99
Carbon Dioxide 25
BUN 46 H
Creatinine 2.1 H
Glucose 169 H
Calcium 8.5
10/09/24
08:49
WBC
Hgb
Hct
Plt Count
PT
INR
APTT Pending
Sodium
Potassium
Chloride
Carbon Dioxide
BUN
Creatinine
Glucose
Calcium
Vital Signs:
Vital Signs
Temp Pulse Resp BP Pulse Ox
98.3 F 65 21 92/56 94
10/09/24 07:38 10/09/24 07:38 10/09/24 07:38 10/09/24 07:38 10/09/24 07:38
I&O
10/08/24 10/09/24 10/10/24
06:59 06:59 06:59
Intake Total 1110 / 1110 560 / 560
Balance 1110 / 1110 560 / 560
[2024-10-09 07:56] LABS: Glucose - Point of Care 193 mg/dl (70-99)
[2024-10-09] MEDS: NOVOLOG FLEXPEN-LOW RESISTANCE 1 UNITS SC ×2 (09:31→17:20)
[2024-10-09] MEDS: NOVOLOG FLEXPEN 15 UNITS SC ×3 (09:31→17:20)
[2024-10-09] MEDS: IMDUR (EXTENDED RELEASE) 30 MG PO (09:32)
[2024-10-09] MEDS: THERAGRAN 1 TABLET PO (09:32)
[2024-10-09] MEDS: PACERONE 200 MG PO (09:32)
[2024-10-09] MEDS: VITAMIN B-12 1000 MCG PO (09:46)
[2024-10-09] MEDS: TRICOR 145 MG PO (09:46)
[2024-10-09] MEDS: KCL 40 MEQ PO (09:46)
[2024-10-09] MEDS: FEOSOL 325 MG PO (09:46)
[2024-10-09 09:48] LABS: Hematocrit 33.4 % (37.0-47.0); Hemoglobin 10.7 g/dL (12.0-16.0); Mean Corpuscular Hgb 30.7 pg (27.0-31.0); Platelet Count 274 10^3/uL (130-400); Red Blood Cell Count 3.48 10^6/uL (4.20-5.40); Red Cell Dist. Width 14.6 % (11.5-14.5)
[2024-10-09 09:54] LABS: INR 1.93; PT 22.2 Sec (11.4-14.6)
[2024-10-09 09:56] LABS: APTT 90.7 Sec (23.4-35.0)
[2024-10-09 10:14] LABS: Creatine Phosphokinase 33 U/L (30-135)
--- NOTE | 2024-10-09 11:37 | W.PN.NEPH.PH ---
Today's Communication / Plan
-
IVF 1 more day
need urine studies-not done so far
Assessment/Plan
-
Impression:
Ambulatory dysfunction
E. coli UTI
Acute kidney injury
CKD stage IIIa ~ 1.5)
Paroxysmal atrial fibrillation
History of CVA with left-sided hemiparesis
Hypertension
Insulin requiring diabetes
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
History of prior urinary tract infection due to left obstructive nephrolith with subsequent hydronephrosis
Plan:
ELIAS: cr no change at 2.1, UOP not measured, incontinent
-Check urine eosinophils to assess for possible drug-induced interstitial nephritis
-Urinalysis notes 4+ blood , WBCs greater than 100, moderate bacteria 2+ leukocyte esterase positive nitrite, consistent with E. coli UTI
-Holding Lasix and losartan, hemodynamically stable
-Check postvoid bladder scan(142cc) with low threshold for Robledo catheter placement if needed
pending kidney and bladder ultrasound to assess for possible obstruction and/or nephrolith
-Okay for NSS at low rate for now, likely d/c by am
-
-
Date of Service: October 09, 2024
CC / HPI / ROS
-
Chief Complaint:
ELIAS
History of Present Illness:
cr no change at 2.1
urine labs not done
BP stable this am
no fever
Review of Systems:
no cp or sob at rest
on 2lit of O2
Labs
-
Labs:
WBC 7.0 10^3/uL (4.8-10.8) 10/09/24 09:21
RBC 3.48 10^6/uL (4.20-5.40) L 10/09/24 09:21
Hgb 10.7 g/dL (12.0-16.0) L 10/09/24 09:21
Hct 33.4 % (37.0-47.0) L 10/09/24 09:21
Plt Count 274 10^3/uL (130-400) 10/09/24 09:21
Sodium 134 mmol/L (135-145) L 10/08/24 23:58
Potassium 4.3 mmol/L (3.5-5.1) 10/08/24 23:58
Chloride 99 mmol/L (98-107) 10/08/24 23:58
Carbon Dioxide 25 mmol/L (22-30) 10/08/24 23:58
BUN 46 mg/dl (7-17) H 10/08/24 23:58
Creatinine 2.1 mg/dL (0.6-1.0) H 10/08/24 23:58
eGFR 23.67 10/08/24 23:58
Glucose 169 mg/dl (70-99) H 10/08/24 23:58
Calcium 8.5 mg/dl (8.4-10.2) 10/08/24 23:58
Hnp-V-Zvpvepjsdgh Pept 439 pg/ml 10/08/24 01:02
Albumin 2.8 g/dl (3.5-5.0) L 10/07/24 08:01
Physical Exam
-
Vital Signs:
Vital Signs
Temp Pulse Resp BP Pulse Ox
98.3 F 70 21 131/57 94
10/09/24 07:38 10/09/24 09:32 10/09/24 07:38 10/09/24 09:32 10/09/24 08:19
Cardiovascular:: Regular rate and rhythm
Lung Excursion:: Normal (decreased)
Abdomen:: Nontender and Soft
Extremity Edema:: +1: Bilateral:
Robledo Catheter: No
[2024-10-09 12:02] LABS: Glucose - Point of Care 209 mg/dl (70-99)
[2024-10-09] MEDS: NOVOLOG FLEXPEN-LOW RESISTANCE 2 UNITS SC (13:03)
--- NOTE | 2024-10-09 13:29 | CON.ID ---
Consultation
-
Date/Time Consultation Requested: 10/08/2024 1600
Date/Time Consultation Performed: 10/09/2024 1320
Requesting Provider: Dr. Huff
Performing Provider: Dr. Sanchez
Reason for Consultation: UTI
Chief Complaint / Past History
History of Present Illness
Kinza Gaines is a 79-year-old female being evaluated at the request of Dr. Huff regarding complicated urinary tract infection. History is obtained from chart review, along with patient interview.
The patient has a significant past medical history of CVA with left residual. She resides at home with her who evidently has memory dysfunction. According to reviewed notes the patient was brought to the emergency room at [facility] on 10/06 after a neighbor called 911. Evidently the patient has become essentially bedbound and had not gotten out of bed for the past 5 days. It was unclear whether she had had anything to eat or drink over that period of time. Workup
in the emergency room revealed bacteriuria, and the patient was diagnosed with a urinary tract infection. The patient denies any history of dysuria prior to admission. She denies any urgency or suprapubic discomfort.
Past History
Additional Past Medical History:
Hx Breast cancer
CKD
Hx CVA
HTN
DM
Neurogenic bladder
pA-fib
Additional Past Surgical History:
Appendectomy
Allergy History:
cephalexin monohydrate [From Keflex] Allergy (Verified 03/23/23 17:49)
Itching; tolerates Piperacillin/tazobactam
Medications Reviewed: Yes
Current Antibiotics:
Meropenem
Social History
Tobacco: Non-Smoker
Alcohol: None
Drug: None
Personal:
Living: With Family
Employment: Retired
Family History
Family History: Not Pertinent
Review of Systems
Vital Signs
Temp Pulse Resp BP Pulse Ox
98.3 F 70 21 131/57 94
10/09/24 07:38 10/09/24 09:32 10/09/24 07:38 10/09/24 09:32 10/09/24 08:19
Physical Exam
Physical Exam
Constitutional: No Acute Distress, Comfortable, Chronically Ill and Non-toxic
Eyes: Sclera Anicteric
Oral: No Thrush and No Ulcers
Cardiovascular: S1/S2; Negative S3/S4
Pulmonary: Non Labored
Gastrointestinal: Soft, Non Tender and Non Distended
Extremities: Edema; Negative Cyanosis or Erythema
Neurological: Awake and Alert
Psychological: Calm
Lab / Diagnostic Study Results
10/09/24 09:21
10/08/24 23:58
Abs Immat Gran (auto) 0.1 10^3/uL (0-0.05) H 10/07/24 08:01
Absolute Neuts (auto) 6.9 10^3/uL (1.4-6.5) H 10/07/24 08:01
Absolute Lymphs (auto) 1.0 10^3/uL (1.2-3.4) L 10/07/24 08:01
Absolute Monos (auto) 0.7 10^3/uL (0.1-0.6) H 10/07/24 08:01
Absolute Basos (auto) 0.0 10^3/uL (0-0.2) 10/07/24 08:01
Immature Gran % 1.3 % (0-0.5) H 10/07/24 08:01
Neutrophils % 78.5 % (42.2-75.2) H 10/07/24 08:01
Lymphocytes % 10.9 % (20.5-51.1) L 10/07/24 08:01
Monocytes % 7.9 % (1.7-9.3) 10/07/24 08:01
Eosinophils % 0.9 % (0-6) 10/07/24 08:01
Basophils % 0.5 % (0-2) 10/07/24 08:01
PT 22.2 Sec (11.4-14.6) H 10/09/24 09:21
INR 1.93 10/09/24 09:21
Microbiology Results
Micro:
10/06/24 20:13 Urine Culture - Final
Urine Escherichia coli
10/07/24 00:36 MRSA Screen - Final
Nose No Methicillin Resistant Staphylococcus aureus isolated.
Imaging:
10/09/2024 Renal ultrasound: Unremarkable renal ultrasound. No hydronephrosis, contour deforming solid renal mass or echogenic shadowing foci to suggest renal calculi.
Assessment / Plan
Bacteriuria/pyuria without symptomatology
Ambulatory dysfunction
Hx Breast cancer
CKD
Hx CVA
HTN
DM
Neurogenic bladder
pA-fib
Recommendations:
At present, minimal symptomatology, although urinalysis noted to have marked pyuria.
E. coli recovered from the urine culture, and has been found to be pansensitive.
Discontinue further meropenem and transition to oral amoxicillin 500 mg p.o. twice daily x 5 days.
[2024-10-09 15:37] VITALS: BP 99/55
[2024-10-09 15:43] LABS: Glucose - Point of Care 160 mg/dl (70-99)
[2024-10-09] MEDS: COUMADIN 0.5 MG PO (17:21)
[2024-10-09] MEDS: LANTUS 0.24 UNITS SC (17:22)
[2024-10-09] MEDS: LIPITOR 10 MG PO (17:23)
[2024-10-09 19:07] LABS: Urine Sodium 20 mmol/L (30-90)
[2024-10-09 19:22] LABS: Body Fluid for Eosinophils No Eosinophils seen
[2024-10-09] MEDS: AMOXIL 500 MG PO (19:57)
[2024-10-09 21:08] LABS: Glucose - Point of Care 138 mg/dl (70-99)
[2024-10-09 22:16] VITALS: BP 128/59
[2024-10-09] MEDS: TOPROL XL 50 MG PO (22:16)
[2024-10-09 23:00] VITALS: BP 133/61
[2024-10-10] MEDS: NSS 1000 IV (01:53)
[2024-10-10] MEDS: HEPARIN 25000 UNITS/250 ML IV (04:25)
--- NOTE | 2024-10-10 06:00 | PTCARENOTE ---
This RN went in to change pt and found a large amount of blood leaking from an old IV site in pt's right forearm. Pt denies any dizziness and is AAOx3. BP 165/80, HR 68. Right forearm dressed. VARNISH SUPERVISOR Morena notified of bleeding, will continue IV
heparin gtt and pressure dressing.
[2024-10-10 06:31] LABS: Protein/creatinine Ratio 1.6; Urine Protein 147 mg/dl
[2024-10-10 06:39] VITALS: BP 165/80
[2024-10-10 07:17] LABS: Glucose - Point of Care 187 mg/dl (70-99)
[2024-10-10 07:25] VITALS: BP 129/67
[2024-10-10 08:00] LABS: Blood Urea Nitrogen 39 mg/dl (7-17); Calcium 7.8 mg/dl (8.4-10.2); Carbon Dioxide 25 mmol/L (22-30); Chloride 108 mmol/L (98-107); Estimated Creatinine Clearance 28 ml/min; Glucose 168 mg/dl (70-99); Magnesium 1.7 mg/dl (1.6-2.3); Potassium 4.4 mmol/L (3.5-5.1); Sodium 138 mmol/L (135-145); eGFR 26.69
[2024-10-10 08:01] LABS: INR 1.79
[2024-10-10 08:03] LABS: APTT 90.3 Sec (23.4-35.0)
[2024-10-10 08:12] LABS: % Basophils 0.7 % (0-2); % Eosinophils 2.2 % (0-6); % Immature Granulocytes 2.4 % (0-0.5); % Lymphocytes 14.4 % (20.5-51.1); % Monocytes 8.7 % (1.7-9.3); % Neutrophils 71.6 % (42.2-75.2); Absolute Eosinophils 0.1 10^3/uL (0-0.7); Absolute Immature Granulocytes 0.1 10^3/uL (0-0.05); Absolute Lymphocytes 0.8 10^3/uL (1.2-3.4); Absolute Monocytes 0.5 10^3/uL (0.1-0.6); Absolute Neutrophils 3.9 10^3/uL (1.4-6.5); Hematocrit 33.1 % (37.0-47.0); Hemoglobin 10.5 g/dL (12.0-16.0); Mean Corp Hgb Conc. 31.7 g/dL (33.0-37.0); Mean Corpuscular Hgb 31.4 pg (27.0-31.0); Mean Corpuscular Volume 99.1 fL (81.0-99.0); Mean Platelet Volume 10.2 fL (7.4-10.4); Nucleated Red Blood Cells % 0 %; Platelet Count 292 10^3/uL (130-400); Red Blood Cell Count 3.34 10^6/uL (4.20-5.40); Red Cell Dist. Width 14.7 % (11.5-14.5); White Blood Cell Count 5.4 10^3/uL (4.8-10.8)
[2024-10-10] MEDS: IMDUR (EXTENDED RELEASE) 30 MG PO (08:56)
[2024-10-10] MEDS: AMOXIL 500 MG PO ×2 (08:57→19:44)
[2024-10-10] MEDS: THERAGRAN 1 TABLET PO (08:57)
[2024-10-10] MEDS: FEOSOL 325 MG PO (08:57)
[2024-10-10] MEDS: VITAMIN B-12 1000 MCG PO (08:57)
[2024-10-10] MEDS: TRICOR 145 MG PO (08:57)
[2024-10-10] MEDS: KCL 40 MEQ PO (08:57)
[2024-10-10] MEDS: PACERONE 200 MG PO (08:58)
[2024-10-10] MEDS: NOVOLOG FLEXPEN-LOW RESISTANCE 1 UNITS SC (09:10)
[2024-10-10] MEDS: NOVOLOG FLEXPEN 15 UNITS SC ×3 (09:10→16:59)
[2024-10-10 11:47] LABS: Glucose - Point of Care 262 mg/dl (70-99)
--- NOTE | 2024-10-10 11:58 | W.PN.NEPH.PH ---
Today's Communication / Plan
-
follow labs
wean IVF as po inake improves
Assessment/Plan
-
Impression:
Ambulatory dysfunction
E. coli UTI
Acute kidney injury
CKD stage IIIa ~ 1.5) Dr Mahajan
Paroxysmal atrial fibrillation
History of CVA with left-sided hemiparesis
Hypertension
Insulin requiring diabetes
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
History of prior urinary tract infection due to left obstructive nephrolith with subsequent hydronephrosis
Plan:
ELIAS: likely prerenal U na low , cr improving to 1.9 with IVF
UOP not measured, incontinent
-neg urine eosinophils unlikely drug-induced interstitial nephritis
U PCR 1.6gm/gm of cr likely diabetic nephropathy
-Urinalysis notes 4+ blood , WBCs greater than 100, moderate bacteria 2+ leukocyte esterase positive nitrite, consistent with E. coli UTI
-Holding Lasix and losartan, hemodynamically stable
-Check postvoid bladder scan(142cc) with low threshold for Robledo catheter placement if needed
no hydro on kidney and bladder ultrasound to assess for possible obstruction and/or nephrolith
likely d/c IVF once po intake improving
-
-
Date of Service: October 10, 2024
CC / HPI / ROS
-
Chief Complaint:
ELIAS
History of Present Illness:
cr improving to 1.9
BP stable this am
no fever
Review of Systems:
no cp or sob at rest
on 2lit of O2
also admitted in the hospital
Labs
-
Labs:
WBC 5.4 10^3/uL (4.8-10.8) 10/10/24 07:23
RBC 3.34 10^6/uL (4.20-5.40) L 10/10/24 07:23
Hgb 10.5 g/dL (12.0-16.0) L 10/10/24 07:23
Hct 33.1 % (37.0-47.0) L 10/10/24 07:23
Plt Count 292 10^3/uL (130-400) 10/10/24 07:23
Sodium 138 mmol/L (135-145) 10/10/24 07:23
Potassium 4.4 mmol/L (3.5-5.1) 10/10/24 07:23
Chloride 108 mmol/L (98-107) H 10/10/24 07:23
Carbon Dioxide 25 mmol/L (22-30) 10/10/24 07:23
BUN 39 mg/dl (7-17) H 10/10/24 07:23
Creatinine 1.9 mg/dL (0.6-1.0) H 10/10/24 07:23
eGFR 26.69 10/10/24 07:23
Glucose 168 mg/dl (70-99) H 10/10/24 07:23
Calcium 7.8 mg/dl (8.4-10.2) L 10/10/24 07:23
Fyj-G-Smsyiuljzfh Pept 439 pg/ml 10/08/24 01:02
Albumin 2.8 g/dl (3.5-5.0) L 10/07/24 08:01
Physical Exam
-
Vital Signs:
Vital Signs
Temp Pulse Resp BP Pulse Ox
98.3 F 69 18 129/67 94
10/10/24 07:25 10/10/24 07:25 10/10/24 07:25 10/10/24 07:25 10/10/24 07:25
Cardiovascular:: Regular rate and rhythm
Respiratory:: Bilateral: CTA (anteriorly)
Lung Excursion:: Normal
Abdomen:: Nontender and Soft
Extremity Edema:: +1: Bilateral:
Robledo Catheter: No
--- NOTE | 2024-10-10 12:05 | W.PN.ID1 ---
Date of Service
Date of Service: October 10, 2024
Today's Communication
Continue antibiotics
Assessment / Plan
Bacteriuria/pyuria; without symptomatology
Ambulatory dysfunction
Hx Breast cancer
CKD
Hx CVA with left residual
HTN
DM
Neurogenic bladder
pA-fib
Recommendations:
At present, minimal symptomatology, although urinalysis noted to have marked pyuria.
E. coli recovered from the urine culture, and noted to be pansensitive.
Continue with oral amoxicillin 500 mg p.o. twice daily x 4 days.
Chief Complaint
-: UTI
Subjective / Review of Systems
Review of Systems: No Fever, No Chills and No Dysuria
Vital Signs / Physical Exam
Vital Signs
Vital Signs
Temp Pulse Resp BP Pulse Ox
98.3 F 69 18 129/67 94
10/10/24 07:25 10/10/24 07:25 10/10/24 07:25 10/10/24 07:25 10/10/24 07:25
Physical Exam
Constitutional: No Acute Distress, Chronically Ill and Non-toxic
Pulmonary: Non Labored
Extremities: Edema; Negative Cyanosis or Erythema
Neurological: Awake and Alert
Psychological: Calm
Objective Data
Lab Data
Lab Results
10/10/24 07:23
10/10/24 07:23
PT 21.0 Sec (11.4-14.6) H 10/10/24 07:23
INR 1.79 10/10/24 07:23
APTT 90.3 Sec (23.4-35.0) H 10/10/24 07:23
Estimated Creat Clear 28 ml/min 10/10/24 07:23
Total Bilirubin 0.5 mg/dl (0.2-1.3) 10/07/24 08:01
AST 17 U/L (14-36) 10/07/24 08:01
ALT 13 U/L (0-35) 10/07/24 08:01
Alkaline Phosphatase 61 U/L (38-126) 10/07/24 08:01
Most recent labs reviewed.
Micro Results:
10/06/24 20:13 Urine Culture - Final
Urine Escherichia coli
10/07/24 00:36 MRSA Screen - Final
Nose No Methicillin Resistant Staphylococcus aureus isolated.
Imaging:
10/09/2024 Renal ultrasound: Unremarkable renal ultrasound. No hydronephrosis, contour deforming solid renal mass or echogenic shadowing foci to suggest renal calculi.
[2024-10-10] MEDS: NOVOLOG FLEXPEN-LOW RESISTANCE 3 UNITS SC (12:24)
--- NOTE | 2024-10-10 15:10 | W.PN.HOSP.TC ---
Today's Communication/Plan
-
Chest X-Ray given patient's oxygen requirement
Continue antibiotics
Coumadin 1 mg tonight (0.5 mg+0.5 mg tonight) -- discussed this with pharmacist
ELIAS still present
Assessment / Plan
Assessment / Plan
Physical Exam
General: Not in acute distress
HEENT: Normocephalic
Respiratory: CTAB
Cardiac: S1/S2 and Regular Rhythm
GI: Soft, Non Tender, Non Distended and Normal Bowel Sounds
Musculoskeletal: No Cyanosis and No Edema
Skin: Warm. Dry.
Neuro: Nonfocal/grossly intact

Echocardiogram (as per facility environmental technician's report):
CONCLUSIONS
LV ejection fraction is 60-65%.
No regional wall motion abnormalities are seen.
Normal right ventricular size and function.
Mild to moderate tricuspid regurgitation. Estimated pulmonary artery pressure
of 40-45 mmHg.
Compared to previous echo on 12/03/2019, the degree of mitral regurgitation has
improved (previously moderate). PASP has slightly increased (previously 30-35
mmHg).

Assessment/Plan
79-year-old female with past medical history of CVA with left hemiparesis, paroxysmal atrial fibrillation, hypertension, diabetes, neurogenic bladder, breast cancer, chronic kidney disease stage 3, complicated UTI with left obstructive stone,
anemia, aspiration pneumonitis, presented for inability to get out of bed for 5 days. History on admission was obtained from patient's neighbor. Patient's usually takes care of patient but was noted to have dementia and he is being admitted
currently. She normally uses a [employer] lift to get around. She is nonambulatory at baseline. Her had been giving her insulin but not checking her blood sugars. She denied any nausea or vomiting, urinary symptoms, abdominal pain, diarrhea,
shortness of breath, cough.
Patient does not smoke or drink alcohol.
#Presentation with inability to get out of bed for 5 days
#Acute Hypoxic Respiratory Failure -- on 3 L of oxygen here, but no home oxygen
#History of Aspiration Pneumonitis
#Urinary tract infection secondary to pansensitive E. Coli
#History of E. coli, Klebsiella pneumoniae, Klebsiella oxytoca and Nohemy Albicans in the Urine
#History of prior urinary retention
#History of MRSA
#History of Polymicrobial Septic Shock (with blood cultures positive for candidemia and E coli and Providencia species)
#History of complicated urinary tract infection with left obstructive stone and hydronephrosis
-Check Chest X-Ray
-In 2019, patient required cystoscopy with stone manipulation and JJ stent placement on December 08, 2019
-Continue IV fluids for 1 more day
-Follow urine culture -- so far growing E. coli
-Previously stopped Zosyn given jump in creatinine
-Transitioned to oral amoxicillin 500 mg p.o. twice daily x 5 days -- appreciate ID
-MRSA swab negative
-Bladder scan protocol
-Echo okay, proBNP 439 --> not suspecting PE
-Lower extremity ultrasound showed no DVT
# Hyperglycemia secondary to infection
# Type 2 diabetes
-Blood sugar was 543
-Appreciate Diabetes RESAW OPERATOR insulin adjustment assistance
History of CVA with left hemiparesis
Hypokalemia - RESOLVED
-Replace potassium
-Magnesium okay
-Monitor BMP
Paroxysmal atrial fibrillation on Coumadin
Subtherapeutic INR
-Continue amiodarone
-Continue Coumadin
-Given subtherapeutic INR, continue to bridge with Heparin Drip -- discussed this with on-call cardiology and neurosurgery on 10/07/24 and okay to do Heparin Drip in the setting of her history of remote hemorrhagic
CVA
-Coumadin total of 1 mg (0.5 mg+0.5 mg) ordered for 10/10/24 evening given drop in INR on 10/10/24
-Continue metoprolol
Essential hypertension
-Continue losartan
ELIAS on CKD 3
-Cr jumped from 1.3 to 2.1, previously IV fluids were given
-Cr with slight improvement today
-Zosyn stopped on 10/08/24
-Hold Losartan, PPI
-Continue IV fluids
-Continue bladder scans
-Renal ultrasound with urinary incontinence but otherwise unremarkable
-Nephrology consult evaluation and recommendations appreciated
Chronic anemia
-Hemoglobin at baseline
-Continue ferrous sulfate
Hyperlipidemia
-Continue fenofibrate
Lower extremity edema
-Hold Lasix
History of Breast cancer status post mastectomy with port placement followed by chemotherapy and radiation therapy - finished all of that back in 2011
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
Neurogenic bladder from her CVA.
-Continue Bladder Scans protocol
Psoriasis
History of sacral decubitus ulcer
History of DVT status post IVC filter
Sacral decubitus ulcer.
DNR/DNI
Diet/Speech: 'Swallow Evaluation for 432-01 Kinza Gaines: Recommending IDDSI Level 4 Puree diet, thin liquids. Medications crushed in puree. Aspiration precautions includin:1 assistance/100% supervision with meals, check for pocketing,
monitor for signs of aspiration.....'
DVT prophylaxis�Coumadin and Heparin Drip
IDDSI Level 4+Thin Liquids diet
Anticipated Discharge: 24 - 48 hours
Subjective/Interval History
-
Date of Service: October 10, 2024
Patient was seen and examined. She denied any new symptoms or complaints.
Objective Data
-
Labs:
Laboratory Results
10/10/24
07:23
WBC 5.4
Hgb 10.5 L
Hct 33.1 L
Plt Count 292
PT 21.0 H
INR 1.79
APTT 90.3 H
Sodium 138
Potassium 4.4
Chloride 108 H
Carbon Dioxide 25
BUN 39 H
Creatinine 1.9 H
Glucose 168 H
Calcium 7.8 L
Vital Signs:
Vital Signs
Temp Pulse Resp BP Pulse Ox
98.3 F 69 18 129/67 94
10/10/24 07:25 10/10/24 07:25 10/10/24 07:25 10/10/24 07:25 10/10/24 07:25
I&O
10/09/24 10/10/24 10/11/24
06:59 06:59 06:59
Intake Total 560 / 560 840 / 840
Balance 560 / 560 840 / 840
[2024-10-10 15:20] VITALS: BP 128/57
[2024-10-10 16:51] LABS: Glucose - Point of Care 205 mg/dl (70-99)
[2024-10-10] MEDS: NOVOLOG FLEXPEN-LOW RESISTANCE 2 UNITS SC (16:59)
[2024-10-10] MEDS: LANTUS 0.24 UNITS SC (17:00)
[2024-10-10] MEDS: COUMADIN 0.5 MG PO ×2 (17:02→18:30)
[2024-10-10] MEDS: COUMADIN PO (17:03)
[2024-10-10] MEDS: LIPITOR 10 MG PO (17:04)
[2024-10-10 20:56] LABS: Glucose - Point of Care 214 mg/dl (70-99)
[2024-10-10] MEDS: TOPROL XL 50 MG PO (21:20)
[2024-10-10 22:08] LABS: Troponin I < 0.012 ng/ml
[2024-10-10 23:47] VITALS: BP 133/66
[2024-10-11 02:11] LABS: Troponin I < 0.012 ng/ml
[2024-10-11 07:07] VITALS: BP 124/48
--- NOTE | 2024-10-11 07:54 | PN.DE.MGMTRT ---
Insulin Management
- -
10/11/2024: Diabetes Management F/U:
Patient admitted 10/06 with blood sugar problem. Neighbor did a well check on patient and to find they were not able to care for each other. PMH CVA, CA, HTN, diabetes, kidney disease. Prior to admission chart indicates patient was
ordered NovoLog 20 units BID with Tresiba 20 units @ hs. A1C 9.8%, cr 1.3 eGFR 42.09.
Patient is awake and alert unable to answer questions regarding her diabetes care prior to admission. has dementia and was assisting pt but she has not received insulin or been out of bed in 5 days. Glucose on admission 543 due to missed
dose of Lantus the night before.
NovoLog 20 units BID was changed to 12 units and increased to 15 units AC with low corrective on 10/08.
premeal glucose remains elevated 186 to 262, requiring 1-3 units of additional insulin. FBG 138 (V) this AM.
Will increase AC NovoLog to 18 units. Cont Lantus 24 units @ HS.
Patient is unable to administer her insulin herself. There is a glucose monitor at home but patient is unable to perform self testing.
Pt is for SNF placement at this time. Will cont to follow
Diabetes History
- -
Type of Diabetes: 2 requiring insulin
Pre-Admission Diabetes Regimen
10/10/24
07:23
Creatinine 1.9 H
Lab Results
Hemoglobin A1c 9.8 % (4.0-5.6) H 10/07/24 08:01
Insulin Pump Settings
IP Diabetes Regimen
10/10/24 10/10/24 10/10/24
07:23 11:44 16:48
Glucose 168 H
POC Glucose 262 H 205 H
10/10/24
20:53
Glucose
POC Glucose 214 H
Meal type: Lunch
Amount consumed: 100%
Patient Education
[2024-10-11 08:17] LABS: % Basophils 0.6 % (0-2); % Eosinophils 2.3 % (0-6); % Immature Granulocytes 3.4 % (0-0.5); % Lymphocytes 18.6 % (20.5-51.1); % Monocytes 8.7 % (1.7-9.3); % Neutrophils 66.4 % (42.2-75.2); Absolute Eosinophils 0.1 10^3/uL (0-0.7); Absolute Immature Granulocytes 0.2 10^3/uL (0-0.05); Absolute Monocytes 0.5 10^3/uL (0.1-0.6); Absolute Neutrophils 3.5 10^3/uL (1.4-6.5); Hematocrit 34.9 % (37.0-47.0); Hemoglobin 10.4 g/dL (12.0-16.0); Mean Corp Hgb Conc. 29.8 g/dL (33.0-37.0); Mean Corpuscular Volume 100.6 fL (81.0-99.0); Mean Platelet Volume 9.8 fL (7.4-10.4); Nucleated Red Blood Cells % 0 %; Platelet Count 305 10^3/uL (130-400); Red Blood Cell Count 3.47 10^6/uL (4.20-5.40); Red Cell Dist. Width 15.1 % (11.5-14.5); White Blood Cell Count 5.3 10^3/uL (4.8-10.8)
[2024-10-11 08:29] LABS: INR 1.55; PT 18.8 Sec (11.4-14.6)
[2024-10-11 08:31] LABS: APTT 93.1 Sec (23.4-35.0)
[2024-10-11 08:39] LABS: Troponin I < 0.012 ng/ml
[2024-10-11 08:58] LABS: Blood Urea Nitrogen 29 mg/dl (7-17); Calcium 8.6 mg/dl (8.4-10.2); Carbon Dioxide 26 mmol/L (22-30); Chloride 108 mmol/L (98-107); Estimated Creatinine Clearance 38 ml/min; Glucose 138 mg/dl (70-99); Magnesium 1.9 mg/dl (1.6-2.3); Potassium 4.9 mmol/L (3.5-5.1); Sodium 140 mmol/L (135-145); eGFR 38.51
[2024-10-11 09:17] LABS: Glucose - Point of Care 164 mg/dl (70-99)
[2024-10-11] MEDS: NOVOLOG FLEXPEN-LOW RESISTANCE 1 UNITS SC ×2 (09:21→13:18)
[2024-10-11] MEDS: NOVOLOG FLEXPEN SC ×2 (09:21→09:38)
[2024-10-11] MEDS: IMDUR (EXTENDED RELEASE) 30 MG PO (09:22)
[2024-10-11] MEDS: PACERONE 200 MG PO (09:23)
[2024-10-11] MEDS: FEOSOL 325 MG PO (09:23)
[2024-10-11] MEDS: KCL 40 MEQ PO (09:23)
[2024-10-11] MEDS: THERAGRAN 1 TABLET PO (09:23)
[2024-10-11] MEDS: AMOXIL 500 MG PO ×2 (09:23→21:08)
[2024-10-11] MEDS: TRICOR 145 MG PO (09:23)
[2024-10-11] MEDS: VITAMIN B-12 1000 MCG PO (09:23)
[2024-10-11] MEDS: NOVOLOG FLEXPEN 18 UNITS SC ×3 (09:38→17:40)
[2024-10-11 13:13] LABS: Glucose - Point of Care 180 mg/dl (70-99)
[2024-10-11] MEDS: LASIX 40 MG IV (13:17)
--- NOTE | 2024-10-11 13:33 | W.PN.NEPH.PH ---
Today's Communication / Plan
-
No more IV fluid
Assessment/Plan
-
Impression:
Ambulatory dysfunction
E. coli UTI
Acute kidney injury
CKD stage IIIa ~ 1.5) Dr Mahajan
Paroxysmal atrial fibrillation
History of CVA with left-sided hemiparesis
Hypertension
Insulin requiring diabetes
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
History of prior urinary tract infection due to left obstructive nephrolith with subsequent hydronephrosis
Plan:
ELIAS: likely prerenal U na low , cr improving to 1.4 with IVF
UOP not measured, incontinent
-neg urine eosinophils unlikely drug-induced interstitial nephritis
U PCR 1.6gm/gm of cr likely diabetic nephropathy
-Urinalysis notes 4+ blood , WBCs greater than 100, moderate bacteria 2+ leukocyte esterase positive nitrite, consistent with E. coli UTI
-Holding Lasix and losartan, hemodynamically stable
-Check postvoid bladder scan(142cc) with low threshold for Robledo catheter placement if needed
no hydro on kidney and bladder ultrasound to assess for possible obstruction and/or nephrolith
no need for further IVFs as creatinine back to baseline
-
-
Date of Service: October 11, 2024
CC / HPI / ROS
-
Chief Complaint:
ELIAS
History of Present Illness:
cr improving to 1.4
BP stable this am
no fever
Review of Systems:
no cp or sob at rest
on 2lit of O2
also admitted in the hospital
Labs
-
Labs:
WBC 5.3 10^3/uL (4.8-10.8) 10/11/24 07:56
RBC 3.47 10^6/uL (4.20-5.40) L 10/11/24 07:56
Hgb 10.4 g/dL (12.0-16.0) L 10/11/24 07:56
Hct 34.9 % (37.0-47.0) L 10/11/24 07:56
Plt Count 305 10^3/uL (130-400) 10/11/24 07:56
Sodium 140 mmol/L (135-145) 10/11/24 07:56
Potassium 4.9 mmol/L (3.5-5.1) 10/11/24 07:56
Chloride 108 mmol/L (98-107) H 10/11/24 07:56
Carbon Dioxide 26 mmol/L (22-30) 10/11/24 07:56
BUN 29 mg/dl (7-17) H 10/11/24 07:56
Creatinine 1.4 mg/dL (0.6-1.0) H 10/11/24 07:56
eGFR 38.51 10/11/24 07:56
Glucose 138 mg/dl (70-99) H 10/11/24 07:56
Calcium 8.6 mg/dl (8.4-10.2) 10/11/24 07:56
Ole-L-Xddhxupawuf Pept 439 pg/ml 10/08/24 01:02
Albumin 2.8 g/dl (3.5-5.0) L 10/07/24 08:01
Physical Exam
-
Vital Signs:
Vital Signs
Temp Pulse Resp BP Pulse Ox
98.3 F 67 16 127/65 94
10/11/24 07:07 10/11/24 13:17 10/11/24 07:07 10/11/24 13:17 10/11/24 07:07
Cardiovascular:: Regular rate and rhythm
Respiratory:: Bilateral: CTA (anteriorly)
Lung Excursion:: Normal
Abdomen:: Nontender and Soft
Extremity Edema:: +1: Bilateral:
Robledo Catheter: No
--- NOTE | 2024-10-11 14:06 | CM ---
Chart reviewed and case filler spoke spoke with admissions at [facility] and they have not accepted patient, referral sent to [facility] and they cannot acct patient case filler reached out to patient's nephew, Rudolph to discuss
referrals to [facility], and referrals to [facility], and [facility].
Plan; Skilled placement.
[2024-10-11 15:00] VITALS: BP 123/55
[2024-10-11 15:05] LABS: Troponin I < 0.012 ng/ml
--- NOTE | 2024-10-11 15:35 | W.PN.ID1 ---
Date of Service
Date of Service: October 11, 2024
Today's Communication
Continue antibiotics
Assessment / Plan
Bacteriuria/pyuria; without symptomatology
Ambulatory dysfunction
Hx Breast cancer
CKD
Hx CVA with left residual
HTN
DM
Neurogenic bladder
pA-fib
Recommendations:
At present, minimal symptomatology, although urinalysis noted to have marked pyuria.
E. coli recovered from the urine culture, and noted to be pansensitive.
Continue with oral amoxicillin 500 mg p.o. twice daily x 3 additional days.
Chief Complaint
-: UTI
Subjective / Review of Systems
Review of Systems: No Fever, No Chills and No Dysuria
Vital Signs / Physical Exam
Vital Signs
Vital Signs
Temp Pulse Resp BP Pulse Ox
98.3 F 67 16 127/65 94
10/11/24 07:07 10/11/24 13:17 10/11/24 07:07 10/11/24 13:17 10/11/24 07:07
Physical Exam
Constitutional: No Acute Distress, Chronically Ill and Non-toxic
Cardiovascular: S1/S2; Negative S3/S4
Pulmonary: Non Labored
Extremities: Edema; Negative Cyanosis or Erythema
Neurological: Awake and Alert
Psychological: Calm
Objective Data
Lab Data
Lab Results
10/11/24 07:56
10/11/24 07:56
PT 18.8 Sec (11.4-14.6) H 10/11/24 07:56
INR 1.55 10/11/24 07:56
APTT 93.1 Sec (23.4-35.0) H 10/11/24 07:56
Estimated Creat Clear 38 ml/min 10/11/24 07:56
Total Bilirubin 0.5 mg/dl (0.2-1.3) 10/07/24 08:01
AST 17 U/L (14-36) 10/07/24 08:01
ALT 13 U/L (0-35) 10/07/24 08:01
Alkaline Phosphatase 61 U/L (38-126) 10/07/24 08:01
Most recent labs reviewed.
Micro Results:
10/06/24 20:13 Urine Culture - Final
Urine Escherichia coli
10/07/24 00:36 MRSA Screen - Final
Nose No Methicillin Resistant Staphylococcus aureus isolated.
Imaging:
10/09/2024 Renal ultrasound: Unremarkable renal ultrasound. No hydronephrosis, contour deforming solid renal mass or echogenic shadowing foci to suggest renal calculi.
[2024-10-11 16:05] VITALS: BP 140/66; PULSE 68; O2SAT 96
[2024-10-11] MEDS: HEPARIN 25000 UNITS/250 ML IV (16:14)
--- NOTE | 2024-10-11 16:29 | W.PN.HOSP.TC ---
Today's Communication/Plan
-
Continue heparin to warfarin bridge
Follow-up INR
Provide IV Lasix 40 mg
Wean off oxygen as possible
Assessment / Plan
Assessment / Plan
TTE
LV ejection fraction is 60-65%.
No regional wall motion abnormalities are seen.
Normal right ventricular size and function.
Mild to moderate tricuspid regurgitation. Estimated pulmonary artery pressure
of 40-45 mmHg.

1. Acute hypoxic respiratory failure
-Chest x-ray reviewed and possible atelectasis versus effusion versus pneumonia lower lobe
-Provide empiric trial of IV Lasix 40 mg 1 dose today
-Continue wean off oxygen as possible
2. Urinary tract infection from pansensitive E. coli
-Afebrile/normal WBC count at this point
-ID help appreciated, patient to finish amoxicillin 500 mg twice daily 5-day course
3. Generalized weakness
History of CVA
-PT OT evaluation ordered
-Will likely require SNF rehab placement
4. Paroxysmal atrial fibrillation on Coumadin
-Patient being bridged back to warfarin, INR remains sub-theraputic
-on heparin drip currently, increase PM dose of warfarin to 2mg
5. Type 2 diabetes -uncontrolled
Hyperglycemia
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
-Insulin dose increased and currently on Lantus 24 units every evening and 18 units AC
5. Hypokalemia
-Replace as needed
6. ELIAS on CKD IIIB
-ELIAS resolved and creatinine close to baseline of 1.31.4
-Renal ultrasound with urinary incontinence but otherwise unremarkable
-Nephrology consult evaluation and recommendations appreciated
History of Aspiration Pneumonitis
History of E. coli, Klebsiella pneumoniae, Klebsiella oxytoca and Nohemy Albicans in the Urine
History of prior urinary retention
History of MRSA
History of Polymicrobial Septic Shock (with blood cultures positive for candidemia and E coli and Providencia species)
History of complicated urinary tract infection with left obstructive stone and hydronephrosis
Essential hypertension
Chronic anemia
Hyperlipidemia
History of Breast cancer status post mastectomy with port placement followed by chemotherapy and radiation therapy - finished all of that back in 2011
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
Neurogenic bladder from her CVA.
Psoriasis
History of sacral decubitus ulcer
History of DVT status post IVC filter
DNR/DNI
Anticipated Discharge: 24 - 48 hours
Subjective/Interval History
-
Date of Service: October 11, 2024
Denies any significant shortness of breath
Remains on oxygen through nasal cannula
Some lower back pain reported
No other major events overnight
Objective Data
-
Labs:
Laboratory Results
10/11/24
07:56
WBC 5.3
Hgb 10.4 L
Hct 34.9 L
Plt Count 305
PT 18.8 H
INR 1.55
APTT 93.1 H
Sodium 140
Potassium 4.9
Chloride 108 H
Carbon Dioxide 26
BUN 29 H
Creatinine 1.4 H
Glucose 138 H
Calcium 8.6
Vital Signs:
Vital Signs
Temp Pulse Resp BP Pulse Ox
98.3 F 67 16 127/65 94
10/11/24 07:07 10/11/24 13:17 10/11/24 07:07 10/11/24 13:17 10/11/24 07:07
I&O
10/10/24 10/11/24 10/12/24
06:59 06:59 06:59
Intake Total 840 / 840 1421 / 1421
Balance 840 / 840 1421 / 1421
Review of Systems
-
Respiratory: Reports Cough; Denies Trouble Breathing
Cardiac: Reports No Symptoms
Abdomen/GI: Reports No Symptoms
Physical Exam
-
General: No Apparent Distress and Comfortable
HEENT: Oxygen (2L NC)
Respiratory: Clear to Auscultation
Cardiac: Regular Rhythm and S1/S2; Negative Murmur or Rub
GI: Soft, Nontender and Nondistended
Musculoskeletal: No Edema
Neuro: Awake, Alert, Oriented, No Motor Deficits and Nonfocal/Grossly Intact
Psych: Calm
[2024-10-11 16:59] LABS: Glucose - Point of Care 206 mg/dl (70-99)
[2024-10-11] MEDS: LANTUS 0.24 UNITS SC (17:38)
[2024-10-11] MEDS: COUMADIN 2 MG PO (17:38)
[2024-10-11] MEDS: LIPITOR 10 MG PO (17:38)
[2024-10-11] MEDS: NOVOLOG FLEXPEN-LOW RESISTANCE 2 UNITS SC (17:40)
[2024-10-11] MEDS: TOPROL XL PO (21:09)
[2024-10-11] MEDS: TOPROL XL 50 MG PO (21:19)
[2024-10-11 21:23] LABS: Glucose - Point of Care 168 mg/dl (70-99)
[2024-10-11 23:40] VITALS: BP 144/84
[2024-10-12 06:36] VITALS: BMI 30.4
[2024-10-12 07:00] VITALS: BP 147/72
[2024-10-12 07:37] LABS: Hematocrit 33.7 % (37.0-47.0); Hemoglobin 10.5 g/dL (12.0-16.0); Mean Corp Hgb Conc. 31.2 g/dL (33.0-37.0); Mean Corpuscular Hgb 30.9 pg (27.0-31.0); Mean Corpuscular Volume 99.1 fL (81.0-99.0); Mean Platelet Volume 9.9 fL (7.4-10.4); Platelet Count 301 10^3/uL (130-400); Red Cell Dist. Width 14.9 % (11.5-14.5); White Blood Cell Count 6.9 10^3/uL (4.8-10.8)
[2024-10-12 07:54] LABS: INR 1.66; PT 19.8 Sec (11.4-14.6)
--- NOTE | 2024-10-12 08:13 | PN.DE.MGMTRT ---
Insulin Management
- -
10/12/2024: Diabetes Management Follow up:
Patient admitted 10/06 with blood sugar problem. Neighbor did a well check on patient and to find they were not able to care for each other. PMH CVA, CA, HTN, diabetes, kidney disease. Prior to admission chart indicates patient was
ordered NovoLog 20 units BID with Tresiba 20 units @ hs. A1C 9.8%, cr 1.3 eGFR 42.09.
Patient is awake and alert unable to answer questions regarding her diabetes care prior to admission. has dementia and was assisting pt but she has not received insulin or been out of bed in 5 days. Glucose on admission 543 due to missed
dose of Lantus the night before.
Glucose range 164 o 206, novolog AC increased to 18 units. Will continue lantus 24 units @ hs with 18 units novolog AC and corrective insulin
Patient is unable to administer her insulin herself. There is a glucose monitor at home but patient is unable to perform self testing.
Pt is for SNF placement at this time. Will cont to follow
Diabetes History
- -
Type of Diabetes: 2 requiring insulin
Pre-Admission Diabetes Regimen
10/11/24
07:56
Creatinine 1.4 H
Lab Results
Hemoglobin A1c 9.8 % (4.0-5.6) H 10/07/24 08:01
Insulin Pump Settings
IP Diabetes Regimen
10/11/24 10/11/24 10/11/24
07:56 09:16 13:11
Glucose 138 H
POC Glucose 164 H 180 H
10/11/24 10/11/24
16:58 21:22
Glucose
POC Glucose 206 H 168 H
Patient Education
[2024-10-12 08:14] LABS: Calcium 8.9 mg/dl (8.4-10.2); Carbon Dioxide 30 mmol/L (22-30); Chloride 105 mmol/L (98-107); Glucose 104 mg/dl (70-99); Potassium 5.1 mmol/L (3.5-5.1); Sodium 140 mmol/L (135-145)
[2024-10-12 08:25] LABS: Blood Urea Nitrogen 26 mg/dl (7-17); Estimated Creatinine Clearance 46 ml/min; eGFR 46.33
[2024-10-12 08:26] LABS: Glucose - Point of Care 117 mg/dl (70-99)
[2024-10-12] MEDS: NOVOLOG FLEXPEN SC (08:34)
[2024-10-12] MEDS: NOVOLOG FLEXPEN-LOW RESISTANCE SC ×2 (08:35→17:44)
[2024-10-12] MEDS: LASIX 40 MG PO (08:38)
[2024-10-12] MEDS: FEOSOL 325 MG PO (08:40)
[2024-10-12] MEDS: AMOXIL 500 MG PO ×2 (08:40→20:17)
[2024-10-12] MEDS: PACERONE 200 MG PO (08:40)
[2024-10-12] MEDS: KCL 40 MEQ PO (08:40)
[2024-10-12] MEDS: VITAMIN B-12 1000 MCG PO (08:40)
[2024-10-12] MEDS: THERAGRAN 1 TABLET PO (08:40)
[2024-10-12] MEDS: TRICOR 145 MG PO (08:41)
[2024-10-12] MEDS: IMDUR (EXTENDED RELEASE) 30 MG PO (08:41)
[2024-10-12] MEDS: NOVOLOG FLEXPEN 18 UNITS SC ×3 (10:02→17:45)
[2024-10-12 10:12] LABS: APTT 61.7 Sec (23.4-35.0)
[2024-10-12] MEDS: HEPARIN 6700 UNITS IV (10:39)
[2024-10-12 11:51] LABS: Glucose - Point of Care 276 mg/dl (70-99)
--- NOTE | 2024-10-12 11:53 | CM ---
Addendum entered by Addis Pompa 10/12/24 16:05:
Patient and spouse have been accepted at [facility], patient will be able to go under her medicare and spouse will have to private pay for facility.
Original Note:
senior software engineering manager reviewed patient's chart and met with patient again and spoke with nephkarrie Galdamez and Elia Brush and Nigel Li were discussed, nurse case management received a call from [facility], patient and spouse's first choice that she
maybe able to accept patient. Patient meets criteria for inpatient rehab however her spouse on is still OBS and needs to provide private pay.
Plan; To follow up with Johana in admissions at [facility].
[2024-10-12] MEDS: NOVOLOG FLEXPEN-LOW RESISTANCE 3 UNITS SC (14:13)
--- NOTE | 2024-10-12 14:57 | W.PN.HOSP.TC ---
Addendum entered and electronically signed by Sumanth Hahn MD 10/12/24 16:43:
Discussed with cardio and appropriate to be transition to Eliquis.
Will discontinue heparin drip at 1999 and provide Eliquis 5 mg same time
Warfarin orders discontinued as well.
Original Note:
Today's Communication/Plan
-
see note
d/c planning for eventual [facility]
Assessment / Plan
Assessment / Plan
TTE
LV ejection fraction is 60-65%.
No regional wall motion abnormalities are seen.
Normal right ventricular size and function.
Mild to moderate tricuspid regurgitation. Estimated pulmonary artery pressure
of 40-45 mmHg.

1. Acute hypoxic respiratory failure
-Chest x-ray reviewed and possible atelectasis versus effusion versus pneumonia lower lobe
-Continue wean off oxygen as possible
-Providing repeat dose of IV Lasix 40mg x1 today
2. Urinary tract infection from pansensitive E. coli
-Afebrile/normal WBC count at this point
-ID help appreciated, patient to finish amoxicillin 500 mg twice daily 5-day course
3. Generalized weakness
History of CVA
-telma lift dependant at baseline
-approved for [facility] living.
4. Paroxysmal atrial fibrillation on Coumadin
-Patient being bridged back to warfarin, INR remains sub-therapeutic
-on heparin drip currently, Increase warfarin 3mg today
-Asked cadio opinion if appropriate to switch to DOAC
5. Type 2 diabetes -uncontrolled
Hyperglycemia
-Diabetic LAYOUT FORMER following and help appreciated
-Insulin dose increased and currently on Lantus 24 units every evening and 18 units AC
5. Hypokalemia
-Replace as needed
6. ELIAS on CKD IIIB
-ELIAS resolved and creatinine close to baseline of 1.3-1.4
-Renal ultrasound with urinary incontinence but otherwise unremarkable
-Nephrology consult evaluation and recommendations appreciated
History of Aspiration Pneumonitis
History of E. coli, Klebsiella pneumoniae, Klebsiella oxytoca and Nohemy Albicans in the Urine
History of prior urinary retention
History of MRSA
History of Polymicrobial Septic Shock (with blood cultures positive for candidemia and E coli and Providencia species)
History of complicated urinary tract infection with left obstructive stone and hydronephrosis
Essential hypertension
Chronic anemia
Hyperlipidemia
History of Breast cancer status post mastectomy with port placement followed by chemotherapy and radiation therapy - finished all of that back in 2011
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
Neurogenic bladder from her CVA.
Psoriasis
History of sacral decubitus ulcer
History of DVT status post IVC filter
DNR/DNI
Anticipated Discharge: 24 - 48 hours
Subjective/Interval History
-
Date of Service: October 12, 2024
no issues overnight
remains on o2 through [place]
Objective Data
-
Labs:
Laboratory Results
10/12/24 10/12/24 10/12/24
07:09 09:32 16:47
WBC 6.9
Hgb 10.5 L
Hct 33.7 L
Plt Count 301
PT 19.8 H
INR 1.66
APTT 61.7 H Pending
Sodium 140
Potassium 5.1
Chloride 105
Carbon Dioxide 30
BUN 26 H
Creatinine 1.2 H
Glucose 104 H
Calcium 8.9
Vital Signs:
Vital Signs
Temp Pulse Resp BP Pulse Ox
98.4 F 63 18 147/72 94
10/12/24 07:00 10/12/24 08:40 10/12/24 07:00 10/12/24 08:40 10/12/24 07:00
I&O
10/11/24 10/12/24 10/13/24
06:59 06:59 06:59
Intake Total 1422 / 1422
Balance 1422 / 1422
Review of Systems
-
Respiratory: Reports No Symptoms
Cardiac: Reports No Symptoms
Abdomen/GI: Reports No Symptoms
Physical Exam
-
General: No Apparent Distress and Comfortable
HEENT: Oxygen (2L NC)
Respiratory: Clear to Auscultation
Cardiac: Regular Rhythm and S1/S2; Negative Murmur or Rub
GI: Soft, Nontender and Nondistended
Musculoskeletal: No Edema
Neuro: Awake, Alert, Oriented, No Motor Deficits and Nonfocal/Grossly Intact
Psych: Calm
[2024-10-12] MEDS: LASIX 40 MG IV (15:42)
[2024-10-12 15:50] VITALS: BP 138/65
--- NOTE | 2024-10-12 16:15 | W.PN.ID1 ---
Date of Service
Date of Service: October 12, 2024
Today's Communication
Continue current course of amoxicillin.
Assessment / Plan
Bacteriuria/pyuria; without symptomatology
Ambulatory dysfunction
Hx Breast cancer
CKD
Hx CVA with left residual
HTN
DM
Neurogenic bladder
pA-fib
Recommendations:
At present, minimal symptomatology, although urinalysis noted to have marked pyuria.
E. coli recovered from the urine culture, and noted to be pansensitive.
Continue with oral amoxicillin 500 mg p.o. twice daily x 2 additional days.
����������������������������������������������������������
Chief Complaint
-: UTI
Vital Signs / Physical Exam
Vital Signs
Vital Signs
Temp Pulse Resp BP Pulse Ox
98.4 F 69 20 138/65 94
10/12/24 07:00 10/12/24 15:50 10/12/24 15:50 10/12/24 15:50 10/12/24 15:49
Physical Exam
Constitutional: No Acute Distress, Chronically Ill and Non-toxic
Cardiovascular: S1/S2; Negative S3/S4
Pulmonary: Non Labored
Extremities: Edema; Negative Cyanosis or Erythema
Neurological: Awake and Alert
Psychological: Calm
Objective Data
Lab Data
Lab Results
10/12/24 07:09
10/12/24 07:09
PT 19.8 Sec (11.4-14.6) H 10/12/24 07:09
INR 1.66 10/12/24 07:09
APTT 61.7 Sec (23.4-35.0) H 10/12/24 09:32
Estimated Creat Clear 46 ml/min 10/12/24 07:09
Total Bilirubin 0.5 mg/dl (0.2-1.3) 10/07/24 08:01
AST 17 U/L (14-36) 10/07/24 08:01
ALT 13 U/L (0-35) 10/07/24 08:01
Alkaline Phosphatase 61 U/L (38-126) 10/07/24 08:01
Most recent labs reviewed.
Micro Results:
10/06/24 20:13 Urine Culture - Final
Urine Escherichia coli
10/07/24 00:36 MRSA Screen - Final
Nose No Methicillin Resistant Staphylococcus aureus isolated.
Imaging:
10/09/2024 Renal ultrasound: Unremarkable renal ultrasound. No hydronephrosis, contour deforming solid renal mass or echogenic shadowing foci to suggest renal calculi.
--- NOTE | 2024-10-12 16:48 | W.PN.NEPH.PH ---
Today's Communication / Plan
-
observe
follow bmp
Assessment/Plan
-
Impression:
Ambulatory dysfunction
E. coli UTI
Acute kidney injury
CKD stage IIIa ~ 1.5) Dr Mahajan
Paroxysmal atrial fibrillation
History of CVA with left-sided hemiparesis
Hypertension
Insulin requiring diabetes
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
History of prior urinary tract infection due to left obstructive nephrolith with subsequent hydronephrosis
Plan:
ELIAS: likely prerenal U na low , cr improving to 1.2
UOP not measured, incontinent
-neg urine eosinophils unlikely drug-induced interstitial nephritis
U PCR 1.6gm/gm of cr likely diabetic nephropathy
-Urinalysis notes 4+ blood , WBCs greater than 100, moderate bacteria 2+ leukocyte esterase positive nitrite, consistent with E. coli UTI
-Holding Lasix and losartan, hemodynamically stable
-Check postvoid bladder scan(142cc) with low threshold for Robledo catheter placement if needed
no hydro on kidney and bladder ultrasound to assess for possible obstruction and/or nephrolith
no need for further IVFs as creatinine back to baseline
-
-
Date of Service: October 12, 2024
CC / HPI / ROS
-
Chief Complaint:
ELIAS
History of Present Illness:
cr improving to 1.2
BP stable this am
no fever
Review of Systems:
no cp or sob at rest
on 2lit of O2
also admitted in the hospital
Labs
-
Labs:
WBC 6.9 10^3/uL (4.8-10.8) 10/12/24 07:09
RBC 3.40 10^6/uL (4.20-5.40) L 10/12/24 07:09
Hgb 10.5 g/dL (12.0-16.0) L 10/12/24 07:09
Hct 33.7 % (37.0-47.0) L 10/12/24 07:09
Plt Count 301 10^3/uL (130-400) 10/12/24 07:09
Sodium 140 mmol/L (135-145) 10/12/24 07:09
Potassium 5.1 mmol/L (3.5-5.1) 10/12/24 07:09
Chloride 105 mmol/L (98-107) 10/12/24 07:09
Carbon Dioxide 30 mmol/L (22-30) 10/12/24 07:09
BUN 26 mg/dl (7-17) H 10/12/24 07:09
Creatinine 1.2 mg/dL (0.6-1.0) H 10/12/24 07:09
eGFR 46.33 10/12/24 07:09
Glucose 104 mg/dl (70-99) H 10/12/24 07:09
Calcium 8.9 mg/dl (8.4-10.2) 10/12/24 07:09
Lyr-M-Shtyrguzeaj Pept 439 pg/ml 10/08/24 01:02
Albumin 2.8 g/dl (3.5-5.0) L 10/07/24 08:01
Physical Exam
-
Vital Signs:
Vital Signs
Temp Pulse Resp BP Pulse Ox
98.4 F 69 20 138/65 94
10/12/24 07:00 10/12/24 15:50 10/12/24 15:50 10/12/24 15:50 10/12/24 15:49
Cardiovascular:: Regular rate and rhythm
Respiratory:: Bilateral: CTA (anteriorly)
Lung Excursion:: Normal
Abdomen:: Nontender and Soft
Extremity Edema:: +1: Bilateral:
Robledo Catheter: No
[2024-10-12 17:30] LABS: APTT > 200 Sec (23.4-35.0)
--- NOTE | 2024-10-12 17:40 | PTCARENOTE ---
Patient's PTT Resulted > 200, MD Hahn notified and heparin gtt on hold for 2 hours per protocol
[2024-10-12] MEDS: LIPITOR 10 MG PO (17:43)
[2024-10-12 17:45] LABS: Glucose - Point of Care 141 mg/dl (70-99)
[2024-10-12] MEDS: LANTUS 0.24 UNITS SC (18:28)
[2024-10-12] MEDS: ELIQUIS 5 MG PO (20:17)
[2024-10-12 21:31] LABS: Glucose - Point of Care 113 mg/dl (70-99)
[2024-10-12 22:38] VITALS: BP 165/79
[2024-10-12] MEDS: TOPROL XL 50 MG PO (22:40)
--- NOTE | 2024-10-13 03:57 | DOWNTIME ---
There was a [employer] Client Solar Installation Supervisor Downtime on 10/13/2024 from 0100 to 10/13/2024 at 0350. Downtime documentation of patient's care, including medication administrations, has been reconciled in the electronic record per guidelines. Refer to the
patient's paper chart under the miscellaneous tab to see printed paper medication records and downtime forms.
[2024-10-13 07:00] LABS: Glucose - Point of Care 97 mg/dl (70-99)
--- NOTE | 2024-10-13 07:41 | PN.DE.MGMTRT ---
Insulin Management
- -
10/13/2024: Diabetes Management Follow up:
Patient admitted 10/06 with blood sugar problem. Neighbor did a well check on patient and to find they were not able to care for each other. PMH CVA, CA, HTN, diabetes, kidney disease. Prior to admission chart indicates patient was
ordered NovoLog 20 units BID with Tresiba 20 units @ hs. A1C 9.8%, cr 1.3 eGFR 42.09.
Patient is awake and alert unable to answer questions regarding her diabetes care prior to admission. has dementia and was assisting pt but she has not received insulin or been out of bed in 5 days. Glucose on admission 543 due to missed
dose of Lantus the night before.
10/13 Glucose range 109 to 276 yesterday, novolog AC increased to 18 units. Will continue lantus 24 units @ hs with 18 units novolog AC and corrective insulin
Patient is unable to administer her insulin herself. There is a glucose monitor at home but patient is unable to perform self testing.
Pt is for SNF placement at this time. Will cont to follow
Diabetes History
- -
Type of Diabetes: 2 requiring insulin
Pre-Admission Diabetes Regimen
10/12/24
07:09
Creatinine 1.2 H
Lab Results
Hemoglobin A1c 9.8 % (4.0-5.6) H 10/07/24 08:01
Insulin Pump Settings
IP Diabetes Regimen
10/12/24 10/12/24 10/12/24
07:09 08:25 11:49
Glucose 104 H
POC Glucose 117 H 276 H
10/12/24 10/12/24 10/13/24
17:43 21:30 06:59
Glucose
POC Glucose 141 H 113 H 97
Meal type: Breakfast
Amount consumed: 100%
Patient Education
[2024-10-13 08:00] VITALS: BP 117/49
[2024-10-13 08:30] LABS: Hematocrit 34.2 % (37.0-47.0); Hemoglobin 10.7 g/dL (12.0-16.0); Mean Corp Hgb Conc. 31.3 g/dL (33.0-37.0); Mean Corpuscular Hgb 31.1 pg (27.0-31.0); Mean Corpuscular Volume 99.4 fL (81.0-99.0); Mean Platelet Volume 9.9 fL (7.4-10.4); Platelet Count 333 10^3/uL (130-400); Red Blood Cell Count 3.44 10^6/uL (4.20-5.40); Red Cell Dist. Width 15.1 % (11.5-14.5); White Blood Cell Count 7.7 10^3/uL (4.8-10.8)
[2024-10-13] MEDS: NOVOLOG FLEXPEN-LOW RESISTANCE SC (08:30)
[2024-10-13] MEDS: AMOXIL 500 MG PO (09:15)
[2024-10-13] MEDS: KCL 40 MEQ PO (09:15)
[2024-10-13] MEDS: FEOSOL 325 MG PO (09:16)
[2024-10-13] MEDS: ELIQUIS 5 MG PO (09:16)
[2024-10-13] MEDS: VITAMIN B-12 1000 MCG PO (09:16)
[2024-10-13] MEDS: LASIX 40 MG PO (09:16)
[2024-10-13] MEDS: PACERONE 200 MG PO (09:16)
[2024-10-13] MEDS: THERAGRAN 1 TABLET PO (09:16)
[2024-10-13] MEDS: NOVOLOG FLEXPEN 18 UNITS SC ×2 (09:17→13:40)
[2024-10-13 09:18] LABS: Blood Urea Nitrogen 31 mg/dl (7-17); Calcium 8.8 mg/dl (8.4-10.2); Carbon Dioxide 34 mmol/L (22-30); Chloride 99 mmol/L (98-107); Estimated Creatinine Clearance 39 ml/min; Glucose 100 mg/dl (70-99); Sodium 139 mmol/L (135-145); eGFR 38.51
[2024-10-13] MEDS: TRICOR 145 MG PO (09:18)
[2024-10-13] MEDS: IMDUR (EXTENDED RELEASE) 30 MG PO (09:18)
--- NOTE | 2024-10-13 10:29 | CM ---
telecom manager reviewed patient's chart and met with patient and patient is for possible discharge today per physician, plan is for patient to go to [facility], patient's spouse was accepted yesterday at [place] and they will be [facility] at
[facility] living. telecom manager will update patient's nephew Rudolph.
[facility]
Report [phone]
[phone]
Plan: Patient to transfer to [facility] today
--- NOTE | 2024-10-13 11:07 | W.PN.ID1 ---
Date of Service
Date of Service: October 13, 2024
Today's Communication
Sign off
Assessment / Plan
Bacteriuria/pyuria; without symptomatology
Ambulatory dysfunction
Hx Breast cancer
CKD
Hx CVA with left residual
HTN
DM
Neurogenic bladder
pA-fib
Recommendations:
At present, minimal symptomatology, although urinalysis noted to have marked pyuria.
E. coli recovered from the urine culture, and noted to be pansensitive.
Continue with oral amoxicillin 500 mg p.o. twice daily for 1 additional day then discontinue.
Little more to offer from a Infectious Diseases standpoint.
Will see again at your request.
����������������������������������������������������������
Chief Complaint
-: UTI
Subjective / Review of Systems
Review of Systems: No Fever, No Chills and No Dysuria
Vital Signs / Physical Exam
Vital Signs
Vital Signs
Temp Pulse Resp BP Pulse Ox
97.8 F 68 14 117/49 97
10/13/24 08:00 10/13/24 08:00 10/13/24 08:00 10/13/24 09:16 10/13/24 08:00
Physical Exam
Constitutional: No Acute Distress, Chronically Ill and Non-toxic
Cardiovascular: S1/S2; Negative S3/S4
Pulmonary: Non Labored
Extremities: Edema; Negative Cyanosis or Erythema
Neurological: Awake and Alert
Psychological: Calm
Objective Data
Lab Data
Lab Results
10/13/24 07:31
10/13/24 07:31
PT 19.8 Sec (11.4-14.6) H 10/12/24 07:09
INR 1.66 10/12/24 07:09
APTT > 200 Sec (23.4-35.0) H* 10/12/24 16:42
Estimated Creat Clear 39 ml/min 10/13/24 07:31
Total Bilirubin 0.5 mg/dl (0.2-1.3) 10/07/24 08:01
AST 17 U/L (14-36) 10/07/24 08:01
ALT 13 U/L (0-35) 10/07/24 08:01
Alkaline Phosphatase 61 U/L (38-126) 10/07/24 08:01
Most recent labs reviewed.
Micro Results:
10/06/24 20:13 Urine Culture - Final
Urine Escherichia coli
10/07/24 00:36 MRSA Screen - Final
Nose No Methicillin Resistant Staphylococcus aureus isolated.
Imaging:
10/09/2024 Renal ultrasound: Unremarkable renal ultrasound. No hydronephrosis, contour deforming solid renal mass or echogenic shadowing foci to suggest renal calculi.
Care Review
Plan reviewed with: Physician (Hospitalist)
[2024-10-13 11:58] LABS: Glucose - Point of Care 244 mg/dl (70-99)
--- NOTE | 2024-10-13 13:12 | W.PN.HOSP.TC ---
Addendum entered and electronically signed by Sumanth Hahn MD 10/13/24 20:16:
Add to diagnosis list:
Functional paraplegia - needs telma lift for assistance
Ruled out Pneumonia
Original Note:
Today's Communication/Plan
-
d/c planning
Assessment / Plan
Assessment / Plan
TTE
LV ejection fraction is 60-65%.
No regional wall motion abnormalities are seen.
Normal right ventricular size and function.
Mild to moderate tricuspid regurgitation. Estimated pulmonary artery pressure
of 40-45 mmHg.

1. Acute hypoxic respiratory failure
-Chest x-ray reviewed and possible atelectasis versus effusion versus pneumonia lower lobe
-Ordered empiric dose of IV Lasix day before.
-Continue wean off oxygen as possible
2. Urinary tract infection from pansensitive E. coli
-Afebrile/normal WBC count at this point
-ID help appreciated, patient to finish amoxicillin 500 mg twice daily 5-day course
3. Generalized weakness
History of CVA
-telma lift dependant at baseline
-approved for [facility].
4. Paroxysmal atrial fibrillation
-Patient being bridged back to warfarin, INR remains sub-therapeutic
-Discussed with cardiology and appropriate to switch to Eliquis. Coumadin/heparin orders discontinued
5. Type 2 diabetes -uncontrolled
Hyperglycemia
-Diabetic TRAFFIC SUPERVISOR following and help appreciated
-Insulin dose increased and currently on Lantus 24 units every evening and 18 units AC
5. Hypokalemia
-Replace as needed
6. ELIAS on CKD IIIB
-ELIAS resolved and creatinine close to baseline of 1.3-1.4
-Renal ultrasound with urinary incontinence but otherwise unremarkable
-Nephrology consult evaluation and recommendations appreciated
History of Aspiration Pneumonitis
History of E. coli, Klebsiella pneumoniae, Klebsiella oxytoca and Nohemy Albicans in the Urine
History of prior urinary retention
History of MRSA
History of Polymicrobial Septic Shock (with blood cultures positive for candidemia and E coli and Providencia species)
History of complicated urinary tract infection with left obstructive stone and hydronephrosis
Essential hypertension
Chronic anemia
Hyperlipidemia
History of Breast cancer status post mastectomy with port placement followed by chemotherapy and radiation therapy - finished all of that back in 2011
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
Neurogenic bladder from her CVA.
Psoriasis
History of sacral decubitus ulcer
History of DVT status post IVC filter
DNR/DNI
More than 30 minutes spent in discharge including
Final examination of the patient
Summarizing hospital stay
Instructions for continuing care to all relevant caregivers
Preparation of discharge records, prescriptions, and referral forms
Total time spent (in minutes): 39 mins
Anticipated Discharge: Today
Subjective/Interval History
-
Date of Service: October 13, 2024
Denies of having any problems overnight
Objective Data
-
Labs:
Laboratory Results
10/13/24
07:31
WBC 7.7
Hgb 10.7 L
Hct 34.2 L
Plt Count 333
Sodium 139
Potassium 5.0
Chloride 99
Carbon Dioxide 34 H
BUN 31 H
Creatinine 1.4 H
Glucose 100 H
Calcium 8.8
Vital Signs:
Vital Signs
Temp Pulse Resp BP Pulse Ox
97.8 F 68 14 117/49 97
10/13/24 08:00 10/13/24 08:00 10/13/24 08:00 10/13/24 09:16 10/13/24 08:00
I&O
10/12/24 10/13/24 10/14/24
06:59 06:59 06:59
Intake Total 240 / 240
Balance 240 / 240
Review of Systems
-
Respiratory: Reports No Symptoms
Cardiac: Reports No Symptoms
Abdomen/GI: Reports No Symptoms
Physical Exam
-
General: No Apparent Distress and Comfortable
HEENT: Oxygen (2L NC)
Respiratory: Clear to Auscultation
Cardiac: Regular Rhythm and S1/S2; Negative Murmur or Rub
GI: Soft, Nontender and Nondistended
Musculoskeletal: No Edema
Neuro: Awake, Alert, Oriented, No Motor Deficits and Nonfocal/Grossly Intact
Psych: Calm
[2024-10-13] MEDS: NOVOLOG FLEXPEN-LOW RESISTANCE 2 UNITS SC (13:40)
--- NOTE | 2024-10-13 15:24 | PN.CDI ---
CDI
- -
CDI:
Physician Documentation Request
Admit Date: 10/06/24 22:49
Dear Doctor Jovani,
Please review the following and provide your response in the progress notes.
Clinical Indicators:
10/08..SPEECH THERAPY SWALLOW EVALUATION:
#...exhibits clinical signs of oropharyngeal dysphagia,
#...likely chronic related to history of CVA and acutely exacerbated by UTI.
#...remains at risk for aspiration and related complications due to confusion,
#...reduced insight, poor oral hygiene and limited mobility.
RECOMMEND:
1) diet downgrade to IDDSI Level 4 Puree diet, thin liquids
2) Medications crushed in puree
3) Aspiration precautions: 100% supervision and 1:1 assistance with meals; Upright positioning; Small single sips/bites; Slow rate; Alternate textures; Check for pocketing; Only feed when awake/alert; Monitor labs/CXR;
CXR, 10/10
#IMPRESSION:
#...Hazy opacity in the retrocardiac left lower lobe is
#...greater than that seen previously.
#...Possible considerations include pneumonia, atelectasis, and/or pleural effusion.
PN, 10/13
#1. Acute hypoxic respiratory failure
#...-Chest x-ray reviewed and possible atelectasis
#...versus effusion versus pneumonia lower lobe
#2. Urinary tract infection from pansensitive E. coli
#...-Afebrile/normal WBC count at this point
#...-ID help appreciated, patient to finish amoxicillin 500 mg twice daily 5-day course
#3. Generalized weakness
#...History of CVA
#...-telma lift dependant at baseline
ID PN, 10/13
#Bacteriuria/pyuria; without symptomatology
#...At present, minimal symptomatology, although urinalysis noted to have marked pyuria.
#Continue with oral amoxicillin 500 mg p.o. twice daily for 1 additional day then discontinue.
#Hx CVA with left residual
Based on the above and your clinical assessment, please clarify in the Progress Notes further specificity regarding the known, suspected or likely type of pneumonia monitored, evaluate and /or treated?
Aspiration Pneumonitis
Aspiration Pneumonia
Viral Pneumonia - indicate parainfluenza, RSV, adenovirus, influenza (indicate type). etc
Other (please specify)
Use of terms such as suspected, likely, concern for, or probable (associated with a specific diagnosis that is being evaluated, monitored, or treated as if it exists) are acceptable and can be coded in the inpatient setting, when documented at the
time of discharge.
Thank you,
Virginia Harrison RN BSN CCDS
CDI Specialist
please contact via tiger text
Please use your independent medical judgment in providing your response.
--- NOTE | 2024-10-13 15:29 | PTCARENOTE ---
attempted to call for report at [phone] [phone], no answer. voicemail left
--- NOTE | 2024-10-13 15:39 | PN.CDI ---
CDI
- -
CDI:
Physician Documentation Request
Admit Date: 10/06/24 22:49
Dear Doctor Jovani,
Please review the following and provide your response in the progress notes.
Clinical Indicators:
H+P, 10/06
#History of CVA with left hemiparesis
10/07/24 13:35 - Case Management Note
#...bedbound for a while possible 1-2 years, patient spouse had a Luz Maria Lift and
#...w/c in home but it is unclear how recent patient's spouse has used these items.
Selected Entries
10/07/24
00:11
Previous Functional Ability: Dependent
Selected Entries
10/07/24
00:11
Prior to Admission Patient used a: Wheelchair
Non Ambulatory
Please provide a diagnosis associated with the patient's current functional status:
Functional quadriplegia (complete immobility due to severe physical disability or frailty, non neurologic cause)
Generalized weakness only
Other (please specify)
Hemiparesis/Hemiplegia Quadriparesis/Quadriplegia
Type Type
Spastic Complete
Flaccid Incomplete
Laterality Level
Left C1-C4
Right C5-C7
Side Etiology
Dominant side CVA, cerebral palsy,
Nondominant side injury, etc.
Unable to determine Functional quadriplegia
Etiology complete immobility due
CVA, cerebral palsy, severe physical
injury, etc. disability or frailty
Use of terms such as suspected, likely, concern for, or probable (associated with a specific diagnosis that is being evaluated, monitored, or treated as if it exists) are acceptable and can be coded in the inpatient setting, when documented at the
time of discharge.
Thank you,
Virginia Harrison RN BSN CCDS
CDI Specialist
please contact via tiger text
Please use your independent medical judgment in providing your response.
--- NOTE | 2024-10-13 15:58 | W.PN.NEPH.PH ---
Today's Communication / Plan
-
monitor labs
Assessment/Plan
-
Impression:
Ambulatory dysfunction
E. coli UTI
Acute kidney injury
CKD stage IIIa ~ 1.5) Dr Mahajan
Paroxysmal atrial fibrillation
History of CVA with left-sided hemiparesis
Hypertension
Insulin requiring diabetes
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
History of prior urinary tract infection due to left obstructive nephrolith with subsequent hydronephrosis
Plan:
ELIAS: likely prerenal U na low , cr at 1.45 at baseline
UOP not measured, incontinent
-neg urine eosinophils unlikely drug-induced interstitial nephritis
U PCR 1.6gm/gm of cr likely diabetic nephropathy
-Urinalysis notes 4+ blood , WBCs greater than 100, moderate bacteria 2+ leukocyte esterase positive nitrite, consistent with E. coli UTI
-Holding Lasix and losartan, hemodynamically stable, likely resume at d/c if BP demand
-Check postvoid bladder scan(142cc) with low threshold for Robledo catheter placement if needed
no hydro on kidney and bladder ultrasound to assess for possible obstruction and/or nephrolith
f/u nephro post d/c
BMP in 1-2weeks
-
-
Date of Service: October 13, 2024
CC / HPI / ROS
-
Chief Complaint:
ELIAS
History of Present Illness:
cr up at 1.4
hb stable 10.7
BP stable this am
no fever
Review of Systems:
no cp or sob at rest
on 2lit of O2
Labs
-
Labs:
WBC 7.7 10^3/uL (4.8-10.8) 10/13/24 07:31
RBC 3.44 10^6/uL (4.20-5.40) L 10/13/24 07:31
Hgb 10.7 g/dL (12.0-16.0) L 10/13/24 07:31
Hct 34.2 % (37.0-47.0) L 10/13/24 07:31
Plt Count 333 10^3/uL (130-400) 10/13/24 07:31
Sodium 139 mmol/L (135-145) 10/13/24 07:31
Potassium 5.0 mmol/L (3.5-5.1) 10/13/24 07:31
Chloride 99 mmol/L (98-107) 10/13/24 07:31
Carbon Dioxide 34 mmol/L (22-30) H 10/13/24 07:31
BUN 31 mg/dl (7-17) H 10/13/24 07:31
Creatinine 1.4 mg/dL (0.6-1.0) H 10/13/24 07:31
eGFR 38.51 10/13/24 07:31
Glucose 100 mg/dl (70-99) H 10/13/24 07:31
Calcium 8.8 mg/dl (8.4-10.2) 10/13/24 07:31
Lgk-W-Pofblhnfeup Pept 439 pg/ml 10/08/24 01:02
Albumin 2.8 g/dl (3.5-5.0) L 10/07/24 08:01
Physical Exam
-
Vital Signs:
Vital Signs
Temp Pulse Resp BP Pulse Ox
97.8 F 68 14 117/49 97
10/13/24 08:00 10/13/24 08:00 10/13/24 08:00 10/13/24 09:16 10/13/24 08:00
Cardiovascular:: Regular rate and rhythm
Respiratory:: Bilateral: CTA
Lung Excursion:: Normal
Abdomen:: Nontender and Soft
Extremity Edema:: +1: Bilateral: (trace-chronic)
Robledo Catheter: No
[2024-10-13 16:00] VITALS: BP 125/72
== END 2024-10-13 17:12 | DRG 689 ==
LOC: 4 WEST ACU 22:49
PROVIDERS: Hospitalist; Nurse Practitioner Family; ADMITTING PHYSICIAN Hospitalist; ATTENDING PHYSICIAN Hospitalist; CONSULT PHYSICIAN Internal Medicine Infectious Disease; CONSULT PHYSICIAN Specialist; EMERGENCY PHYSICIAN Emergency Medicine
DX: N39.0 Urinary tract infection, site not specified (principal); R53.2 Functional quadriplegia; N17.9 Acute kidney failure, unspecified; I69.354 Hemiplegia and hemiparesis following cerebral infarction affecting left non-dominant side; J98.11 Atelectasis; I12.0 Hypertensive chronic kidney disease with stage 5 chronic kidney disease or end stage renal disease; E11.22 Type 2 diabetes mellitus with diabetic chronic kidney disease; E11.65 Type 2 diabetes mellitus with hyperglycemia; I48.0 Paroxysmal atrial fibrillation; Z79.01 Long term (current) use of anticoagulants; C50.919 Malignant neoplasm of unspecified site of unspecified female breast; D64.9 Anemia, unspecified; E78.5 Hyperlipidemia, unspecified; Z66 Do not resuscitate; N18.31 Chronic kidney disease, stage 3a
CPT/HCPCS: 51701; 70450; 71045; 76770; 80048; 80053; 81003; 81015; 81099; 82550; 82570; 82947; 82962; 83036; 83735; 83880; 84156; 84300; 84484; 85025; 85027; 85610; 85730; 87070; 87077; 87086; 87186; 92526; 92610; 93005; 93306; 93970; 96361; 96365; 96372; 97163; 97165; 99285

== ENCOUNTER → 2024-10-18 09:32 | Outpatient (REF) | payer OTHER, MEDICARE, SELFPAY ==
[2024-10-18 10:44] LABS: Hematocrit 30.8 % (37.0-47.0); Hemoglobin 9.6 g/dL (12.0-16.0); Mean Corp Hgb Conc. 31.2 g/dL (33.0-37.0); Mean Corpuscular Hgb 30.8 pg (27.0-31.0); Mean Corpuscular Volume 98.7 fL (81.0-99.0); Mean Platelet Volume 9.7 fL (7.4-10.4); Platelet Count 318 10^3/uL (130-400); Red Blood Cell Count 3.12 10^6/uL (4.20-5.40); Red Cell Dist. Width 15.1 % (11.5-14.5); White Blood Cell Count 6.9 10^3/uL (4.8-10.8)
[2024-10-18 11:24] LABS: ALT (SGPT) 13 U/L (0-35); AST (SGOT) 16 U/L (14-36); Albumin 2.7 g/dl (3.5-5.0); Alkaline Phosphatase 38 U/L (38-126); Blood Urea Nitrogen 30 mg/dl (7-17); Calcium 8.3 mg/dl (8.4-10.2); Carbon Dioxide 31 mmol/L (22-30); Chloride 104 mmol/L (98-107); Glucose 88 mg/dl (70-99); Magnesium 2.1 mg/dl (1.6-2.3); Potassium 4.2 mmol/L (3.5-5.1); Sodium 142 mmol/L (135-145); Total Bilirubin 0.3 mg/dl (0.2-1.3); Total Protein 5.2 g/dl (6.3-8.2)
== END ==
LOC: OLABWHC 09:32
PROVIDERS: ATTENDING PHYSICIAN Family Medicine
DX: N39.0 Urinary tract infection, site not specified (principal); D64.9 Anemia, unspecified; I48.0 Paroxysmal atrial fibrillation
CPT/HCPCS: 36415; 80053; 83735; 85027

== ENCOUNTER → 2024-11-03 12:00 | Outpatient (REF) | payer MEDICARE, OTHER, SELFPAY ==
[2024-11-03 16:22] LABS: Urine Albumin 1+ (Neg - Trace); Urine Bilirubin Negative (Negative); Urine Character Very Cloudy (Clear); Urine Color Straw; Urine Glucose Negative (Negative); Urine Ketone Negative (Negative); Urine Leukocyte 2+ (Negative); Urine Nitrite Positive (Negative); Urine Occult Blood 1+ (Negative); Urine Specific Gravity 1.015 (<1.030); Urine Urobilinogen Negative (Neg - 1+)
[2024-11-03 16:28] LABS: Urine Red Blood Cell 0-2 /HPF (0-2); Urine Squamous Cell 0-2 /LPF (Few)
[2024-11-03 16:29] LABS: Urine Bacteria Many (Negative); Urine White Cell 50-60 /HPF (0-5)
== END ==
LOC: OLABWHC 12:00
PROVIDERS: ATTENDING PHYSICIAN Family Medicine
DX: N39.0 Urinary tract infection, site not specified (principal)
CPT/HCPCS: 81003; 81015; 87077; 87086; 87088

== ENCOUNTER → 2024-11-15 10:26 | Outpatient (REF) | payer OTHER, MEDICARE, SELFPAY ==
[2024-11-15 12:11] LABS: Hematocrit 33.8 % (37.0-47.0); Hemoglobin 10.3 g/dL (12.0-16.0); Mean Corp Hgb Conc. 30.5 g/dL (33.0-37.0); Mean Corpuscular Hgb 30.3 pg (27.0-31.0); Mean Corpuscular Volume 99.4 fL (81.0-99.0); Platelet Count 409 10^3/uL (130-400); Red Cell Dist. Width 14.7 % (11.5-14.5); White Blood Cell Count 5.7 10^3/uL (4.8-10.8)
[2024-11-15 12:39] LABS: ALT (SGPT) 14 U/L (0-35); AST (SGOT) 19 U/L (14-36); Albumin 3.1 g/dl (3.5-5.0); Alkaline Phosphatase 39 U/L (38-126); Blood Urea Nitrogen 21 mg/dl (7-17); Calcium 8.9 mg/dl (8.4-10.2); Carbon Dioxide 34 mmol/L (22-30); Chloride 103 mmol/L (98-107); Glucose 115 mg/dl (70-99); Magnesium 1.9 mg/dl (1.6-2.3); Potassium 4.8 mmol/L (3.5-5.1); Sodium 140 mmol/L (135-145); Total Bilirubin 0.3 mg/dl (0.2-1.3); Total Protein 5.9 g/dl (6.3-8.2); eGFR 35.45
== END ==
LOC: OLABWHC 10:26
PROVIDERS: ATTENDING PHYSICIAN Family Medicine
DX: N39.0 Urinary tract infection, site not specified (principal); D64.9 Anemia, unspecified; N18.30 Chronic kidney disease, stage 3 unspecified
CPT/HCPCS: 36415; 80053; 83735; 85027

== ENCOUNTER → 2024-12-06 12:52 | Outpatient (REF) | payer OTHER, MEDICARE, SELFPAY ==
[2024-12-06 13:13] LABS: HDL Cholesterol 43 mg/dl; LDL Cholesterol, Calculated 71 mg/dl; Total Cholesterol 150 mg/dl (50-199); Triglyceride 184 mg/dl (10-149); Very Low Density Lipoprotein 36 mg/dl (0-30)
== END ==
LOC: OLABWHC 12:52
PROVIDERS: ATTENDING PHYSICIAN Family Medicine
DX: E78.5 Hyperlipidemia, unspecified (principal)
CPT/HCPCS: 36415; 80061

== ENCOUNTER → 2024-12-27 09:31 | Outpatient (REF) | payer OTHER, MEDICARE, SELFPAY ==
[2024-12-27 09:50] LABS: ALT (SGPT) 11 U/L (0-35); AST (SGOT) 14 U/L (14-36); Albumin 3.6 g/dl (3.5-5.0); Alkaline Phosphatase 46 U/L (38-126); Blood Urea Nitrogen 32 mg/dl (7-17); Calcium 9.4 mg/dl (8.4-10.2); Carbon Dioxide 32 mmol/L (22-30); Chloride 100 mmol/L (98-107); Glucose 157 mg/dl (70-99); Potassium 4.7 mmol/L (3.5-5.1); Procalcitonin 0.09 ng/ml (0.0-0.25); Sodium 139 mmol/L (135-145); Total Bilirubin 0.5 mg/dl (0.2-1.3); Total Protein 6.2 g/dl (6.3-8.2); eGFR 28.48
[2024-12-27 11:15] LABS: % Basophils 0.6 % (0-2); % Eosinophils 3.2 % (0-6); % Immature Granulocytes 1.2 % (0-0.5); % Monocytes 10.5 % (1.7-9.3); % Neutrophils 56.5 % (42.2-75.2); Absolute Eosinophils 0.2 10^3/uL (0-0.7); Absolute Immature Granulocytes 0.1 10^3/uL (0-0.05); Absolute Lymphocytes 1.4 10^3/uL (1.2-3.4); Absolute Monocytes 0.5 10^3/uL (0.1-0.6); Absolute Neutrophils 2.8 10^3/uL (1.4-6.5); Hematocrit 34.9 % (37.0-47.0); Hemoglobin 10.6 g/dL (12.0-16.0); Mean Corp Hgb Conc. 30.4 g/dL (33.0-37.0); Mean Corpuscular Hgb 29.9 pg (27.0-31.0); Mean Corpuscular Volume 98.6 fL (81.0-99.0); Mean Platelet Volume 9.8 fL (7.4-10.4); Nucleated Red Blood Cells % 0 %; Platelet Count 337 10^3/uL (130-400); Red Blood Cell Count 3.54 10^6/uL (4.20-5.40); Red Cell Dist. Width 14.6 % (11.5-14.5)
== END ==
LOC: OLABWHC 09:31
PROVIDERS: ATTENDING PHYSICIAN Family Medicine
DX: D64.9 Anemia, unspecified (principal); I10 Essential (primary) hypertension; E11.9 Type 2 diabetes mellitus without complications
CPT/HCPCS: 36415; 80053; 84145; 85025

== ENCOUNTER → 2025-02-28 12:24 | Outpatient (REF) | payer MEDICARE, OTHER, SELFPAY ==
[2025-02-28 15:16] LABS: ALT (SGPT) 12 U/L (0-35); AST (SGOT) 14 U/L (14-36); Albumin 3.7 g/dl (3.5-5.0); Alkaline Phosphatase 48 U/L (38-126); Direct Bilirubin 0.3 mg/dl (0.0-0.4); Total Bilirubin 0.5 mg/dl (0.2-1.3); Total Protein 6.4 g/dl (6.3-8.2)
== END ==
LOC: OLABWHC 12:24
PROVIDERS: ATTENDING PHYSICIAN Family Medicine
DX: I10 Essential (primary) hypertension (principal)
CPT/HCPCS: 36415; 80076

== ENCOUNTER → 2025-03-30 10:33 | Outpatient (REF) | payer MEDICARE, OTHER, SELFPAY ==
[2025-03-30 13:20] LABS: ALT (SGPT) 11 U/L (0-35); AST (SGOT) 15 U/L (14-36); Albumin 3.6 g/dl (3.5-5.0); Alkaline Phosphatase 37 U/L (38-126); Direct Bilirubin 0.2 mg/dl (0.0-0.4); Total Bilirubin 0.4 mg/dl (0.2-1.3); Total Protein 6.4 g/dl (6.3-8.2)
[2025-03-30 13:40] LABS: TSH 2.81 uIU/ml (0.47-4.68)
== END ==
LOC: OLABWHC 10:33
PROVIDERS: ATTENDING PHYSICIAN Family Medicine
DX: I10 Essential (primary) hypertension (principal)
CPT/HCPCS: 36415; 80076; 84443

== ENCOUNTER → 2025-05-02 09:55 | Outpatient (REF) | payer MEDICARE, OTHER, SELFPAY ==
[2025-05-02 13:12] LABS: Hematocrit 37.2 % (37.0-47.0); Hemoglobin 11.9 g/dL (12.0-16.0); Mean Corpuscular Hgb 30.4 pg (27.0-31.0); Mean Corpuscular Volume 95.1 fL (81.0-99.0); Mean Platelet Volume 10.3 fL (7.4-10.4); Platelet Count 261 10^3/uL (130-400); Red Blood Cell Count 3.91 10^6/uL (4.20-5.40); Red Cell Dist. Width 14.1 % (11.5-14.5); White Blood Cell Count 5.8 10^3/uL (4.8-10.8)
[2025-05-02 16:21] LABS: TSH 1.93 uIU/ml (0.47-4.68)
== END ==
LOC: OLABWHC 09:55
PROVIDERS: ATTENDING PHYSICIAN Family Medicine
DX: I48.0 Paroxysmal atrial fibrillation (principal); E11.9 Type 2 diabetes mellitus without complications; D64.9 Anemia, unspecified
CPT/HCPCS: 36415; 84443; 85027

== ENCOUNTER → 2025-05-03 09:57 | Outpatient (REF) | payer MEDICARE, OTHER, SELFPAY ==
[2025-05-03 10:29] LABS: Hemoglobin 11.7 g/dL (12.0-16.0); Mean Corp Hgb Conc. 30.8 g/dL (33.0-37.0); Mean Corpuscular Hgb 30.2 pg (27.0-31.0); Mean Corpuscular Volume 98.2 fL (81.0-99.0); Mean Platelet Volume 9.8 fL (7.4-10.4); Platelet Count 273 10^3/uL (130-400); Red Blood Cell Count 3.87 10^6/uL (4.20-5.40); Red Cell Dist. Width 14.2 % (11.5-14.5); White Blood Cell Count 5.7 10^3/uL (4.8-10.8)
[2025-05-03 10:37] LABS: ALT (SGPT) 11 U/L (0-35); AST (SGOT) 14 U/L (14-36); Albumin 3.6 g/dl (3.5-5.0); Alkaline Phosphatase 39 U/L (38-126); Blood Urea Nitrogen 31 mg/dl (7-17); Calcium 9.1 mg/dl (8.4-10.2); Carbon Dioxide 28 mmol/L (22-30); Chloride 106 mmol/L (98-107); Direct Bilirubin 0.5 mg/dl (0.0-0.4); Glucose 218 mg/dl (70-99); Potassium 4.2 mmol/L (3.5-5.1); Sodium 141 mmol/L (135-145); Total Bilirubin 0.5 mg/dl (0.2-1.3); Total Protein 6.5 g/dl (6.3-8.2); eGFR 35.23
[2025-05-03 11:04] LABS: TSH 3.32 uIU/ml (0.47-4.68)
== END ==
LOC: OLABWHC 09:57
PROVIDERS: ATTENDING PHYSICIAN Family Medicine
DX: N17.9 Acute kidney failure, unspecified (principal); E11.9 Type 2 diabetes mellitus without complications; E03.9 Hypothyroidism, unspecified; D64.9 Anemia, unspecified; I10 Essential (primary) hypertension
CPT/HCPCS: 36415; 80053; 82248; 84443; 85027

== ENCOUNTER → 2025-05-05 11:04 | Outpatient (REF) | payer MEDICARE, OTHER, SELFPAY ==
[2025-05-05 11:44] LABS: % Basophils 0.6 % (0-2); % Eosinophils 2.7 % (0-6); % Immature Granulocytes 0.8 % (0-0.5); % Monocytes 9.9 % (1.7-9.3); Absolute Eosinophils 0.1 10^3/uL (0-0.7); Absolute Lymphocytes 1.1 10^3/uL (1.2-3.4); Absolute Monocytes 0.5 10^3/uL (0.1-0.6); Absolute Neutrophils 3.3 10^3/uL (1.4-6.5); Hematocrit 37.9 % (37.0-47.0); Hemoglobin 11.8 g/dL (12.0-16.0); Mean Corp Hgb Conc. 31.1 g/dL (33.0-37.0); Mean Corpuscular Hgb 30.4 pg (27.0-31.0); Mean Corpuscular Volume 97.7 fL (81.0-99.0); Mean Platelet Volume 9.9 fL (7.4-10.4); Nucleated Red Blood Cells % 0 %; Platelet Count 288 10^3/uL (130-400); Red Blood Cell Count 3.88 10^6/uL (4.20-5.40); Red Cell Dist. Width 14.3 % (11.5-14.5); White Blood Cell Count 5.1 10^3/uL (4.8-10.8)
[2025-05-05 11:51] LABS: ALT (SGPT) 11 U/L (0-35); AST (SGOT) 14 U/L (14-36); Albumin 3.7 g/dl (3.5-5.0); Alkaline Phosphatase 37 U/L (38-126); Blood Urea Nitrogen 32 mg/dl (7-17); Calcium 9.3 mg/dl (8.4-10.2); Carbon Dioxide 31 mmol/L (22-30); Chloride 106 mmol/L (98-107); Direct Bilirubin 0.3 mg/dl (0.0-0.4); Glucose 198 mg/dl (70-99); Potassium 4.5 mmol/L (3.5-5.1); Sodium 143 mmol/L (135-145); Total Bilirubin 0.5 mg/dl (0.2-1.3); Total Protein 6.7 g/dl (6.3-8.2)
[2025-05-05 12:23] LABS: TSH 2.49 uIU/ml (0.47-4.68)
== END ==
LOC: OLABWHC 11:04
PROVIDERS: ATTENDING PHYSICIAN Family Medicine
DX: I10 Essential (primary) hypertension (principal)
CPT/HCPCS: 36415; 80053; 82248; 84443; 85025

== ENCOUNTER 2025-05-31 21:01 | Emergency (ER) | payer MEDICARE, OTHER, SELFPAY ==
[2025-05-31 21:07] VITALS: BMI 31.1
[2025-05-31 21:12] VITALS: BP 173/82
[2025-05-31 21:13] VITALS: BP 173/82
--- NOTE | 2025-05-31 23:15 | ED.SKININJ ---
HPI-Injury
General
Chief Complaint: Skin Surface Trauma
Source: patient
Exam Limitations: none
Time Seen by Provider: 05/31/25 22:04
Nursing documentation reviewed up to this point in time: agreed with
History of Present Illness-Injury
Initial Injury comments:
80 yo female w h/o IDDM, atrial fibrillation Eliquis, HTN, from [facility] living was being Luz Maria lifted into bed when her left lower leg caught on wheelchair causing laceration.
Past History
Past History
ED Past Medical History: Cancer, CVA, HTN, NIDDM and Other (Neurogenic bladder, paroxysmal atrial fibrillation, breast cancer, chronic kidney disease)
ED Past Surgical History: Appendectomy and Other (Bartholin's cyst)
Social History
Tobacco: Non-smoker
Alcohol: None
Drug: None
Personal:
Living: with family
Employment: Not employed
Family History
Family History: Diabetes and Hypertension
Review of Systems
Review of Systems
Allergies reviewed?: Yes
All Other Systems: ROS reviewed and negative except as documented in HPI and ROS
Skin: Reports other (Laceration left lower leg)
Phy Exam
Physical Exam
Physical Exam:
GENERAL: No acute distress. A&Ox3.
CONSTITUTIONAL: Afebrile.
EYES: clear, conjunctivae normal
ENMT: moist mucus membranes
RESPIRATORY: Regular respirations, nonlabored, lungs clear.
CARDIOVASCULAR: Regular rate and rhythm, no murmurs, no rubs.
GI: Soft, nontender, normal BS
MUSCULOSKELETAL: Well perfused. No edema
SKIN: Warm, dry, pink. Laceration Left lower leg anterior-laterally
PSYCH: Normal mood and affect. Well kept, interactive and appropriate
NEUROLOGIC: Awake, alert and oriented. No focal neurological deficits
Course
Orders/Labs/Results
Orders:
Orders
05/31/25 23:04
Doxycycline [Vibramycin] 100 mg PO NOW STA
Vital Signs
Initial and Last Documented VS:
Initial Vital Signs
Temp Pulse Resp Pulse Ox
98.7 F 73 15 88
05/31/25 21:07 05/31/25 21:07 05/31/25 21:07 05/31/25 21:07
Last Documented Vital Signs
Temp Pulse Resp BP Pulse Ox
98.7 F 61 16 173/82 96
05/31/25 21:07 05/31/25 23:15 05/31/25 23:15 05/31/25 21:13 05/31/25 23:15
Procedures
Laceration Closure
Left lower leg anteriorly:
Status of Wound: clean
Size of Wound in cm: 7
Description of Wound Edges: sharp
Preparation: cleaned with saline
Anesthesia: 1% Lidocaine with epi
Revision/Debridement: minor revision and irrigate-direct pressure
Type of Closure: single layer closure
Skin Closure Material: 3-0 prolene
Number of sutures: 8
Additional information:
skin adhesive around the wound, large steri strips applied to approximate the wounds as well as possible, then sutured through the strips. Non stick, gauze and Kerlix dressing applied
MDM/Problems Addressed
MDM/Problems Addressed:
80 yo female w h/o IDDM, atrial fibrillation Eliquis, HTN, from [facility] living was being Luz Maria lifted into bed when her left lower leg caught on wheelchair causing laceration.
Skin was very thin and had to use skin adhesive with thick Steri-Strips to approximate the wound edges as well as possible then sutured through the strips.
Dressing applied
Chronic conditions affecting care: DM
*Pulse Oximetry
SaO2: 96
Nasal Cannula flow liters per minute: 2
Oxygen Mode of Delivery: Room air
Patient hypoxic: not evaluated
*Critical Care Note
Total Time (30-74mins, 75-104mins- exclusive of procedures): Not Applicable
ED Attending Note
-
Portions of this chart may have been created with voice recognition software.� Occasional wrong word or��sound alike� substitutions may have occurred due to the inherent limitations of voice recognition software.
Discharge Plan
Departure
Patient Disposition: Correction/SNF
Date of Disposition: 05/31/25
Time of Disposition: 23:11
Condition: Good
Discharge Problem:
Laceration of left lower extremity
Instructions: Laceration Repair With Stitches (DC)
Prescriptions:
New
doxycycline hyclate 100 mg capsule
100 mg PO BID Qty: 14 0RF
No Action
simvastatin 10 MG tablet
10 mg PO QPM
cyanocobalamin (vitamin B-12) 1,000 MCG tablet
1,000 mcg PO DAILY
amiodarone [Pacerone] 200 MG tablet
200 mg PO DAILY 0RF
metoprolol succinate 50 MG tablet extended release 24 hr
50 mg PO HS 0RF
pantoprazole 40 MG tablet,delayed release (DR/EC)
40 mg PO DAILY 0RF
isosorbide mononitrate 30 MG tablet extended release 24 hr
30 mg PO DAILY
fenofibrate nanocrystallized 145 MG tablet
145 mg PO DAILY
ferrous sulfate [FeroSul] 325 MG tablet
325 mg PO DAILY
therapeutic multivitamin Tablet
1 tab PO DAILY
cranberry extract [Ellura] 200 mg Capsule
200 mg PO NOON
amoxicillin 500 mg Capsule
500 mg PO BID Qty: 4 0RF
Rx Instructions:
Last dose 10/14 evening
Eliquis 5 mg Tablet
5 mg PO BID Qty: 60 0RF
furosemide 40 mg Tablet
40 mg PO DAILY Qty: 30 0RF
insulin aspart U-100 100 unit/mL (3 mL) Insulin Pen
18 unit SC AC Qty: 15 0RF
Insulin Glargine Lantus [Lantus] 24 UNITS
Subcutaneous Insulin Syringe [Syringe-Insulin] 0 UNIT
As Directed mls/hr SC 2200
Ordered By: Sumanth Hahn MD
Last Taken: Unknown
insulin aspart U-100 100 unit/mL (3 mL) insulin pen
1 sliding scale dose SC AC Qty: 15 0RF
potassium chloride 10 mEq Tablet Extended Release
20 meq PO DAILY Qty: 0 0RF
Referrals:
Oseas Ashley MD [Family Provider, [facility]]
Activity Restrictions/Additional Instructions:
I placed Steri-Strips over the laceration to hold the edges closer together and then sutured through the Steri-Strips.
Change the dressing on Friday. You may gently cleanse the area daily with normal saline and mild soap, rinse well, pat the strips dry, let them air dry or blow them dry before replacing dressing. Then change it daily, put a nonstick dressing on and
then wrap with gauze.
Seek medical care immediately for signs of infection
The sutures should be removed in 12 to 14 days.
Patient received a dose of doxycycline here sean. I sent a prescription back to [facility] with her for doxycycline twice a day for 7 days
Interventions
Interventions:
*Risk Screen - Suicide Last Done: 05/31/25 21:07
*General Assessment Last Done: 05/31/25 21:07
*Neglect/Abuse Screening Last Done: 05/31/25 21:07
ED-Skin Assessment Last Done: 05/31/25 21:12
Discharge Date and Time
Print Language: SAMI
[2025-05-31] MEDS: VIBRAMYCIN 100 MG PO (23:17)
== END 2025-06-01 01:42 ==
LOC: EMR 21:01
PROVIDERS: EMERGENCY PHYSICIAN Emergency Medicine; FAMILY PHYSICIAN Family Medicine
DX: S81.812A Laceration without foreign body, left lower leg, initial encounter (principal); W23.0XXA Caught, crushed, jammed, or pinched between moving objects, initial encounter; I12.9 Hypertensive chronic kidney disease with stage 1 through stage 4 chronic kidney disease, or unspecified chronic kidney disease; E11.22 Type 2 diabetes mellitus with diabetic chronic kidney disease; N18.9 Chronic kidney disease, unspecified; Z86.73 Personal history of transient ischemic attack (TIA), and cerebral infarction without residual deficits; I48.0 Paroxysmal atrial fibrillation; Z79.01 Long term (current) use of anticoagulants
CPT/HCPCS: 12002; 99283

== ENCOUNTER → 2025-07-26 09:56 | Outpatient (REF) | payer MEDICARE, OTHER, SELFPAY ==
[2025-07-26 12:03] LABS: Hematocrit 35.7 % (37.0-47.0); Hemoglobin 11.3 g/dL (12.0-16.0); Mean Corp Hgb Conc. 31.7 g/dL (33.0-37.0); Mean Corpuscular Volume 97.0 fL (81.0-99.0); Platelet Count 283 10^3/uL (130-400); Red Cell Dist. Width 15.0 % (11.5-14.5)
[2025-07-26 13:15] LABS: Glycohemoglobin (HgbA1c) 6.3 % (4.0-5.6)
[2025-07-26 13:54] LABS: Blood Urea Nitrogen 28 mg/dl (7-17); Calcium 9.6 mg/dl (8.4-10.2); Carbon Dioxide 30 mmol/L (22-30); Chloride 109 mmol/L (98-107); Glucose 140 mg/dl (70-99); HDL Cholesterol 39 mg/dl; LDL Cholesterol, Calculated 71 mg/dl; Potassium 4.2 mmol/L (3.5-5.1); Sodium 143 mmol/L (135-145); Very Low Density Lipoprotein 28 mg/dl (0-30); eGFR 35.23
== END ==
LOC: OLABWHC 09:56
PROVIDERS: ATTENDING PHYSICIAN Family Medicine
DX: E11.9 Type 2 diabetes mellitus without complications (principal); D64.9 Anemia, unspecified
CPT/HCPCS: 36415; 80048; 80061; 83036; 85027

== ENCOUNTER → 2025-10-14 15:44 | Outpatient (REF) | payer MEDICARE, OTHER, SELFPAY ==
[2025-10-14 16:18] LABS: Hematocrit 35.1 % (37.0-47.0); Hemoglobin 10.6 g/dL (12.0-16.0); Mean Corp Hgb Conc. 30.2 g/dL (33.0-37.0); Mean Corpuscular Volume 99.4 fL (81.0-99.0); Platelet Count 362 10^3/uL (130-400); Red Cell Dist. Width 15.2 % (11.5-14.5)
[2025-10-14 16:25] LABS: ALT (SGPT) 17 U/L (0-35); AST (SGOT) 30 U/L (14-36); Albumin 3.3 g/dl (3.5-5.0); Alkaline Phosphatase 37 U/L (38-126); Blood Urea Nitrogen 38 mg/dl (7-17); Calcium 8.8 mg/dl (8.4-10.2); Carbon Dioxide 27 mmol/L (22-30); Chloride 102 mmol/L (98-107); Glucose 262 mg/dl (70-99); Potassium 4.8 mmol/L (3.5-5.1); Sodium 135 mmol/L (135-145); Total Protein 6.4 g/dl (6.3-8.2); eGFR 23.53
== END ==
LOC: OLABWHC 15:44
PROVIDERS: ATTENDING PHYSICIAN Family Medicine
DX: I10 Essential (primary) hypertension (principal); N18.30 Chronic kidney disease, stage 3 unspecified; R60.9 Edema, unspecified
CPT/HCPCS: 36415; 80053; 85027

== ENCOUNTER → 2025-10-17 11:52 | Outpatient (REF) | payer MEDICARE, OTHER, SELFPAY ==
[2025-10-17 12:38] LABS: Urine Character Mucous (Clear)
[2025-10-17 12:45] LABS: Urine Squamous Cell 0-2 /LPF (Few)
[2025-10-17 12:46] LABS: Urine White Cell 70-80 /HPF (0-5)
== END ==
LOC: OLABWHC 11:52
PROVIDERS: ATTENDING PHYSICIAN Family Medicine
DX: N39.0 Urinary tract infection, site not specified (principal); N31.9 Neuromuscular dysfunction of bladder, unspecified
CPT/HCPCS: 81003; 81015; 87086

== ENCOUNTER → 2025-10-20 11:23 | Outpatient (REF) | payer OTHER, MEDICARE, SELFPAY ==
[2025-10-20 12:48] LABS: Urine Character Cloudy (Clear)
[2025-10-20 13:59] LABS: Urine White Cell >100 /HPF (0-5)
== END ==
LOC: OLABWHC 11:23
PROVIDERS: ATTENDING PHYSICIAN Family Medicine
DX: E11.9 Type 2 diabetes mellitus without complications (principal); L24.A2 Irritant contact dermatitis due to fecal, urinary or dual incontinence; N17.0 Acute kidney failure with tubular necrosis; Z79.899 Other long term (current) drug therapy
CPT/HCPCS: 81003; 81015; 87086

== ENCOUNTER → 2025-10-24 11:08 | Outpatient (REF) | payer OTHER, MEDICARE, SELFPAY ==
[2025-10-24 11:50] LABS: Hematocrit 33.1 % (37.0-47.0); Hemoglobin 10.1 g/dL (12.0-16.0); Mean Corp Hgb Conc. 30.5 g/dL (33.0-37.0); Mean Corpuscular Volume 99.1 fL (81.0-99.0); Platelet Count 387 10^3/uL (130-400); Red Cell Dist. Width 15.2 % (11.5-14.5)
== END ==
LOC: OLABWHC 11:08
PROVIDERS: ATTENDING PHYSICIAN Family Medicine
DX: D64.9 Anemia, unspecified (principal); N18.30 Chronic kidney disease, stage 3 unspecified; E11.9 Type 2 diabetes mellitus without complications; Z96.0 Presence of urogenital implants; Z79.01 Long term (current) use of anticoagulants
CPT/HCPCS: 36415; 85027